=== PATIENT | female | born 1950 | race Caucasian/White ===

== ENCOUNTER → 2020-02-18 08:52 | Outpatient (REF) | payer MEDICARE, BC, SELFPAY ==
--- NOTE | 2020-02-18 08:30 | CA_ITS ---
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 - Trace mitral valve regurgitation present. Findings Left Ventricle Normal left ventricular size, thickness, systolic function, and wall motion. The visually estimated ejection fraction is between 60-65%. Diastolic function is normal for age. Right Ventricle Normal right ventricular cavity size and systolic function. Atria Both atria are normal in size. Aortic Valve There is a normal trileaflet aortic valve. There is mild calcification of the aortic valve. There is no aortic valve stenosis. There is no aortic valve regurgitation. Mitral Valve There is mild anterior mitral leaflet thickening. There is trace mitral valve regurgitation. There is no mitral valve stenosis. Pulmonic Valve Normal pulmonic valve structure and function. There is trace pulmonic valve regurgitation. Tricuspid Valve Normal tricuspid valve structure and function. There is trace tricuspid valve regurgitation. Normal right atrial pressure. There is no evidence of pulmonary hypertension. Great Vessels There is mild dilatation of the ascending aorta. The visualized portions of the pulmonary artery and branches are normal. Venous The inferior vena cava is normal in size and collapses greater than 50% with inspiration. Pericardium/Pleural There is no evidence of pericardial effusion. Prior Study Comparison Changes noted compared to prior study dated: 12/18/2017. Trace MR present (was previously mild to moderate) Measurements 2D Linear Measurements IVSd: 1.15 0.6-0.9/0.6-1.0 cm LVIDd: 4.48 3.9-5.3/4.2-5.9 cm LVIDd Index: 2.29 2.4-3.2/2.2-3.1 cm/m2 LVIDs: 2.54 2.0-3.6 cm LVPWd: 0.87 0.7-1.1 cm LA Diam: 3.40 2.7-3.8/3.0-4.0 cm LAIDs Index: 1.73 1.5-2.3 cm/m2 LV Mass: 191.70 67-162/88-224 g LV Mass Index: 97.81 43-95/49-115 g/m2 LVOT Diam: 1.90 3.0+(-)1.3 cm 2D Systolic Function EF 4C: 81.60 >55% EF 2C: 79.00 >55% EF BiP: 79.70 >55% Mitral Valve MV Pk E: 0.73 MV PK A: 1.04 MV Decel Time: 198.00 E/A: 0.70 E'Lateral: 8.81 E'Medial: 6.74 E/E' Med: 10.80 E/E' Lat: 8.30 PHT: 58.00 MVA PHT: 3.79 Decel Gladwin: 3.67 Aortic Valve AoV Pk Faustino: 1.36 AoV Pk Grad: 7.00 LVOT LVOT Pk Faustino: 1.26 LVOT Mn Faustino: 0.81 LVOT VTI: 0.27 LVOT Pk Grad: 6.00 LVOT Mn Grad: 3.00 LVOT Diam: 1.90 LVOT Area: 2.84 Diastolic Function MV Pk E: 0.73 MV Pk A: 1.04 E/A: 0.70 E'Medial: 6.74 E/E' Med: 10.80 E' Laterial: 8.81 E/E' Lat: 8.30 Tricuspid Valve TR Pk Faustino: 2.20 TR Pk Grad: 19.00 RA Press: 3.00 RVSP: 22.00 Great Vessels Aorta Ao Asc: 3.40 2.1-3.4 cm Ao Arch: 2.60 Updated in Other Vendor System with Status of Final James Mistry MD electronically signed on 02/20/2020 1:22:15 PM with status of Final
== END ==
LOC: HO.CARD 08:52
PROVIDERS: PCP Family Medicine; Visit Provider Family Medicine
DX: I34.0 Nonrheumatic mitral (valve) insufficiency (principal)
CPT/HCPCS: 93306

== ENCOUNTER → 2020-06-28 11:09 | Outpatient (BNVA) | payer MEDICARE, BC, SELFPAY | PROVIDERS: PCP Family Medicine; Visit Provider Surgery | DX: D05.11 Intraductal carcinoma in situ of right breast (principal) | CPT/HCPCS: 99212 ==

== ENCOUNTER 2020-07-10 08:25 | Outpatient (REF) | payer MEDICARE, BC, SELFPAY ==
--- NOTE | ~2020-07-10 | MM_ITS ---
EXAMINATION: MM SCREENING DIGITAL BREAST TOMOSYNTHESIS, LEFT CLINICAL INFORMATION: Right mastectomy 2011. Due for yearly. COMPARISON: Mammography: 07/05/2019, 06/29/2018, 06/26/2017 TECHNIQUE: Digital breast tomosynthesis is performed in both the craniocaudal and mediolateral oblique views along with computer-aided detection (CAD). Synthesized 2D images are generated from the tomosynthesis. Additional left exaggerated CC view is provided. FINDINGS: There are scattered areas of fibroglandular density (ACR BI-RADS breast composition Category b). There are no significant masses, abnormal calcifications, or other abnormalities. The axilla and skin contours are unremarkable. MM/MM tomosynthesis screening LT IMPRESSION: No mammographic evidence of malignancy. ASSESSMENT: BI-RADS 1: Negative RECOMMENDATION: Routine annual mammography screening. This patient's information was entered into a reminder system with a target due date for their next mammogram.
== END 2020-07-10 08:26 | disposition home or self-care (01) ==
LOC: HO.MAMMO 08:25
PROVIDERS: PCP Family Medicine; Visit Provider Family Medicine
DX: Z12.31 Encounter for screening mammogram for malignant neoplasm of breast (principal)
CPT/HCPCS: 77063; 77067

== ENCOUNTER → 2020-08-14 13:40 | Outpatient (BNVA) | payer MEDICARE, BC, SELFPAY | PROVIDERS: PCP Family Medicine; Visit Provider Internal Medicine Gastroenterology | DX: Z13.89 Encounter for screening for other disorder (principal) | CPT/HCPCS: Q3014 ==

== ENCOUNTER 2020-10-10 07:06 | Day surgery (SDC) | payer MEDICARE, BC, SELFPAY ==
[2020-10-05 11:26] VITALS: BMI 31.4
--- NOTE | 2020-10-09 09:43 | HO.ANESPROP2 ---
Documented by User: Roseline Flores 10/09/20 09:44 HPI - Anesthesia Eval Consult details Narrative: 70yo F for Upper Endoscopy and Colonoscopy PMFSH Active Problems Active Problems: All Active Problems (Updated 08/14/20 @ 14:28 by iTana Guadalupe MD) Dysphagia (Acute) Family hx of colon cancer requiring screening colonoscopy (Acute) Ductal carcinoma in situ (DCIS) of right breast (Acute) Past Medical History Medical History Ductal carcinoma in situ (DCIS) of right breast Dysphagia Family hx of colon cancer requiring screening colonoscopy Hiatal hernia Hypercholesterolemia Hypertension Family History Family History Mother History of breast cancer, Onset Age: 60 Father Old age Brother Colon cancer Surgical History Surgical History History of breast reconstruction (07/27/12) History of colonoscopy History of dilation and curettage History of esophagogastroduodenoscopy (EGD) (06/24/13) History of left knee replacement (08/04/17) History of right mastectomy (10/24/11) History of total right knee replacement (03/11/17) Social History Social History Household Members: Spouse Are you a primary care director to a significant other at home: No Do you presently have visiting nurse or other home services: No Alcohol intake: current Alcohol intake frequency: does not drink Patient Tobacco Use Status: Never used Tobacco Use of substances other than those prescribed or required for medical reasons: No Have you been hit, kicked, punched, or otherwise hurt by someone within the past year? If so, by whom?: No Are you DNR?: No Advance Directives: Yes (states HCP is ) Advance Directives Information Provided: No Advance Directives on File: No Advance Directives Date on File: 10/10/20 Recently lost weight without trying: No Eating poorly because of decreased appetite: No Nutrition Risks: No Nutritional Risk Poor oral hygiene: No Meds Allergies Allergy/AdvReac Type Severity Reaction Status Date / Time No Known Allergies Allergy Verified 08/14/20 13:41 Home Medications Medication Instructions Recorded Confirmed Last Taken Type lisinopril 10 mg tablet 10 mg PO DAILY 06/28/20 10/05/20 Unknown History simvastatin 40 mg tablet 40 mg PO BEDTIME 06/28/20 10/05/20 Unknown History Exam Exam Date and Time: October 09, [id number] Height,Weight and Vital Signs: Height 5 ft 6 in Weight 88.451 kg Assessment and Plan Assessment Anesthesia Assessment: Chart Reviewed Documented by User: Tammie Farr 10/10/20 08:23 [facility] Past Medical History Medical History Ductal carcinoma in situ (DCIS) of right breast Dysphagia Family hx of colon cancer requiring screening colonoscopy Hiatal hernia Hypercholesterolemia Hypertension Family History Family History Mother History of breast cancer, Onset Age: 60 Father Old age Brother Colon cancer Family history of problems with anesthesia: No Surgical History Surgical History History of breast reconstruction (07/27/12) History of colonoscopy History of dilation and curettage History of esophagogastroduodenoscopy (EGD) (06/24/13) History of left knee replacement (08/04/17) History of right mastectomy (10/24/11) History of total right knee replacement (03/11/17) History of Problems with Anesthesia: No Social History Social History Household Members: Spouse Are you a primary care director to a significant other at home: No Do you presently have visiting nurse or other home services: No Alcohol intake: current Alcohol intake frequency: does not drink Patient Tobacco Use Status: Never used Tobacco Use of substances other than those prescribed or required for medical reasons: No Have you been hit, kicked, punched, or otherwise hurt by someone within the past year? If so, by whom?: No Are you DNR?: No Advance Directives: Yes (states HCP is ) Advance Directives Information Provided: No Advance Directives on File: No Advance Directives Date on File: 10/10/20 Recently lost weight without trying: No Eating poorly because of decreased appetite: No Nutrition Risks: No Nutritional Risk Poor oral hygiene: No Meds Allergies Allergy/AdvReac Type Severity Reaction Status Date / Time No Known Allergies Allergy Verified 08/14/20 13:41 Home Medications Medication Instructions Recorded Confirmed Last Taken Type lisinopril 10 mg tablet 10 mg PO DAILY 06/28/20 10/05/20 Unknown History simvastatin 40 mg tablet 40 mg PO BEDTIME 06/28/20 10/05/20 Unknown History Exam Height,Weight and Vital Signs: Vital Signs Temp Pulse Resp BP Pulse Ox 10/10/20 07:30 98.1 F 87 16 139/76 97 Airway Mallampati Class: II TM Dist: >3cm Neck ROM: Full Heart: RRR Lungs: CTAB Assessment and Plan Assessment Anesthesia Assessment: Anesthesia Plan Discussed and Chart Reviewed Final Anesthetic Review NPO: Yes ASA Class: II Final Preanesthetic Review: No Changes in Pt Med Stat, Meds/Allgs Chart Reviewed, Consent Obtained/Reviewed and Anes Risks/Benef Reviewed Patient Risk: Low Procedure Risk: Low Assessment/Block/Sedation in SS: Assess/Block/Sedation-SS Anesthetic Plan Anesthetic Plan: MAC: Disposition: Standard PACU
[2020-10-10 07:30] VITALS: BP 139/76; PULSE 87; RESP 16; TEMP 36.7; O2SAT 97
--- NOTE | 2020-10-10 07:39 | PM.OP ---
Brief Operative Note Date of Service: 10/10/20 Pre-op diagnosis: Colon cancer screening, hx of colon polyps, FH of colon cancer, dysphagia Post-op diagnosis: other (Hiatal hernia, Schatzki's ring, gastric polyps, diverticulosis) Procedure: FLEXIBLE TRANSORAL UPPER GASTROINTESTINAL ENDOSCOPY WITH BIOPSIES AND ESOPHAGEAL BALLOON DILATION AND COLONOSCOPY TILL CECUM UPPER ENDOSCOPY Consent: Indications for the procedure and potential complications of bleeding, perforation, reaction to medications and missed diagnosis were discussed with the patient and informed consent was obtained. Instrument: Olympus GIF H 190 mid size upper endoscope Monitoring: Vital signs and clinical assessment, continuous EKG monitoring, Pulse oximetry, Carbon Dioxide monitoring and blood pressure monitoring were done throughout the procedure. Procedure: The patient was placed in the left lateral decubitis position and pre-procedure medications were administered and a bite block was placed. The endoscope was inserted into the mouth and advanced under direct vision to the third part of duodenum. A careful inspection was made as the upper endoscope was withdrawn including a retroflexed examination of the proximal stomach; Findings and interventions are described below. Findings: Larynx: Normal Esophagus: Grade 1-2 esophageal varices from 30 to 35 cms. GE junction at 36 cms, hiatal hernia 36 to 40 cms. A partially obstructing Schatzki's ring/focal stricture at GEJ. Biopsies were obtained from the stricture. Esophageal balloon dilation was performed with a 20 mm CRE balloon x 60 seconds x 1. No esophagitis or Sumner's. Stomach: Multiple 5 mm to 1.5 cms benign appearing gastric polyps. Biopsies were obtained. Grade 4 flap valve on retroflexed examination of the cardia. Duodenum: Normal bulb and descending duodenum Intervention: Biopsies as noted above COLONOSCOPY PROCEDURE NOTE Consent: Indications for the procedure and potential complications of bleeding, perforation, reaction to medications and missed diagnosis were discussed with the patient and informed consent was obtained. Instrument: Olympus PCF H 190 L variable stiffness pediatric colonoscope Monitoring: Vital signs and clinical assessment, intermittent blood pressure monitoring, continuous EKG monitoring, Pulse oximetry and Carbon Dioxide monitoring were done throughout the procedure. Colon withdrawl time was 25 minutes. Procedure: The patient was placed in the left lateral decubitis position and pre-procedure medications were administered. After a digital rectal examination of the ano-rectum, the video colonoscope was inserted into the rectum and advanced through the colon to the cecum. The colonoscope was slowly withdrawn in a retrograde panoramic fashion and the colon mucosa was carefully examined including a retroflexed view of the rectum. Findings and interventions are described below. Procedure Difficulty: Colon was long and tortuous some loop formation. No maneuvers were required. Findings: Terminal Ileum: Not evaluated Cecum: Normal Ascending Colon: Normal Transverse Colon: Normal Descending Colon: Moderate diverticulosis Sigmoid Colon: Severe diverticulosis with luminal narrowing Rectum: Normal Ano-rectum: Normal Colon preparation: Good after copious irrigation Impression and Post Procedure Diagnosis: Endoscopy Findings: ESOPHAGUS: Grade 1-2 esophageal varices from 30 to 35 cms. GE junction at 36 cms, hiatal hernia 36 to 40 cms. A partially obstructing Schatzki's ring/focal stricture at GEJ. No esophagitis or Sumner's. Biopsies were obtained from the stricture. Esophageal balloon dilation was performed with a 20 mm CRE balloon x 60 seconds x 1. STOMACH: Multiple gastric polyps Colonoscopy Findings: No polyps were detected Moderate to severe diverticulosis seen in the left colon Plan: Await pathology results Patient has an appointment on 11/09/20 in the GI Clinic with Cristopher Grimm M.D.. Repeat Colonoscopy in 5 years due to a hx of adenomatous colon polyps. Above findings were reviewed with the patient and Gastric polyps and diverticulosis handouts were given in the discharge area Surgeon: Cristopher Grimm MD Anesthesia: MAC (Michelle Vergara CRNA & Dr Farr) Was an Quality Control Lead used for this Procedure?: Yes Quality Control Lead: Isai Parrish Estimated blood loss (mL): 0 Pathology: other (A: GASTRIC POLYP BX B: ESOPHAGEAL STRICTURE BX) Condition: stable Disposition: PACU
--- NOTE | 2020-10-10 07:39 | MHC.SHP ---
Pre-Procedural Eval Section A The patient is an INPATIENT: No The History & Physical has been completed within 30 days and I have reviewed it.: No Section B Chief Complaint: Family Hx of Colon Cancer, Dysphagia Details of Present Illness: Colon cancer screening, family history of colon cancer (brother of advanced colon cancer at age 57), dysphagia Relevant Family History (Specify if Yes): Yes Relevant Social History: None Present Medications: see Short Stay Collaborative assessment Medical History: Significant History (Ductal carcinoma in situ (DCIS) of right breast Dysphagia Family hx of colon cancer requiring screening colonoscopy Hiatal hernia Hypercholesterolemia Hypertension) History of Previous Operations: Relevant previous surgery/procedure and date(s) (History of breast reconstruction (07/27/12) History of colonoscopy History of dilation and curettage History of esophagogastroduodenoscopy (EGD) (06/24/13) History of left knee replacement (08/04/17) History of right mastectomy (10/24/11) History of total right knee replacement (03/11/17)) Allergies: Allergies Allergy/AdvReac Type Severity Reaction Status Date / Time No Known Allergies Allergy Verified 08/14/20 13:41 Review of Systems Sugical H&P ROS: Negative: Constitution, Cardiovascular and Respiratory and Yes, Specify: Gastrointestinal (dysphagia) Exam Surgical H&P Exam: Normal: Heart, Normal: Lungs, Normal: Extremities and Normal: Abdomen Plan Diagnosis/Plan: Unchanged I have reviewed the history and physical and performed a pertinent physical examination on my patient. No changes have occurred unless specified.
[2020-10-10] MEDS: Lactated Ringers 1,000 ML 100 ML IVCONT (07:43)
[2020-10-10] MEDS: Sodium Phosphate,Mono-Dibasic 133 ML ENEMA PR (07:44)
--- NOTE | 2020-10-10 07:55 | PC.NURSE ---
FLEET ENEMA PERFORMED LAYING ON LEFT SIDE LOLLY WELL. OUTPUT CLEAR WITH SLIGHT YELLOW.
--- NOTE | 2020-10-10 08:27 | P.OP_ITS ---
Operative Note Operative Note Date of Service: 10/10/20 Narrative: Pre-op diagnosis: Colon cancer screening, hx of colon polyps, FH of colon cancer, dysphagia Post-op diagnosis: other (Hiatal hernia, Schatzki's ring, gastric polyps, diverticulosis) Procedure: FLEXIBLE TRANSORAL UPPER GASTROINTESTINAL ENDOSCOPY WITH BIOPSIES AND ESOPHAGEAL BALLOON DILATION AND COLONOSCOPY TILL CECUM UPPER ENDOSCOPY Consent: Indications for the procedure and potential complications of bleeding, perforation, reaction to medications and missed diagnosis were discussed with the patient and informed consent was obtained. Instrument: Olympus GIF H 190 mid size upper endoscope Monitoring: Vital signs and clinical assessment, continuous EKG monitoring, Pulse oximetry, Carbon Dioxide monitoring and blood pressure monitoring were done throughout the procedure. Procedure: The patient was placed in the left lateral decubitis position and pre-procedure medications were administered and a bite block was placed. The endoscope was inserted into the mouth and advanced under direct vision to the third part of duodenum. A careful inspection was made as the upper endoscope was withdrawn including a retroflexed examination of the proximal stomach; Findings and interventions are described below. Findings: Larynx: Normal Esophagus: Grade 1-2 esophageal varices from 30 to 35 cms. GE junction at 36 cms, hiatal hernia 36 to 40 cms. A partially obstructing Schatzki's ring/focal stricture at GEJ. Biopsies were obtained from the stricture. Esophageal balloon dilation was performed with a 20 mm CRE balloon x 60 seconds x 1. No esophagitis or Sumner's. Stomach: Multiple 5 mm to 1.5 cms benign appearing gastric polyps. Biopsies were obtained. Grade 4 flap valve on retroflexed examination of the cardia. Duodenum: Normal bulb and descending duodenum Intervention: Biopsies as noted above COLONOSCOPY PROCEDURE NOTE Consent: Indications for the procedure and potential complications of bleeding, perforation, reaction to medications and missed diagnosis were discussed with the patient and informed consent was obtained. Instrument: Olympus PCF H 190 L variable stiffness pediatric colonoscope Monitoring: Vital signs and clinical assessment, intermittent blood pressure monitoring, continuous EKG monitoring, Pulse oximetry and Carbon Dioxide monitoring were done throughout the procedure. Colon withdrawl time was 25 minutes. Procedure: The patient was placed in the left lateral decubitis position and pre-procedure medications were administered. After a digital rectal examination of the ano-rectum, the video colonoscope was inserted into the rectum and advanced through the colon to the cecum. The colonoscope was slowly withdrawn in a retrograde panoramic fashion and the colon mucosa was carefully examined including a retroflexed view of the rectum. Findings and interventions are described below. Procedure Difficulty: Colon was long and tortuous some loop formation. No maneuvers were required. Findings: Terminal Ileum: Not evaluated Cecum: Normal Ascending Colon: Normal Transverse Colon: Normal Descending Colon: Moderate diverticulosis Sigmoid Colon: Severe diverticulosis with luminal narrowing Rectum: Normal Ano-rectum: Normal Colon preparation: Good after copious irrigation Impression and Post Procedure Diagnosis: Endoscopy Findings: ESOPHAGUS: Grade 1-2 esophageal varices from 30 to 35 cms. GE junction at 36 cms, hiatal hernia 36 to 40 cms. A partially obstructing Schatzki's ring/focal stricture at GEJ. No esophagitis or Sumner's. Biopsies were obtained from the stricture. Esophageal balloon dilation was performed with a 20 mm CRE balloon x 60 seconds x 1. STOMACH: Multiple gastric polyps Colonoscopy Findings: No polyps were detected Moderate to severe diverticulosis seen in the left colon Plan: Await pathology results Patient has an appointment on 11/09/20 in the GI Clinic with Cristopher Grimm M.D. Patient will be scheduled for an abdominal US and have labs checked for presence of liver disease. Repeat Colonoscopy in 5 years due to a hx of adenomatous colon polyps. Above findings were reviewed with the patient and Gastric polyps and diverticulosis handouts were given in the discharge area Surgeon: Cristopher Grimm MD Anesthesia: MAC (Michelle Vergara CRNA & Dr Farr) Was an Retail Field Representative used for this Procedure?: Yes Retail Field Representative: Isai Parrish Estimated blood loss (mL): 0 Pathology: other (A: GASTRIC POLYP BX B: ESOPHAGEAL STRICTURE BX) Condition: stable Disposition: PACU
[2020-10-10 09:36] VITALS: BP 111/54; PULSE 79; RESP 16; TEMP 36.2; O2SAT 98
[2020-10-10 09:51] VITALS: BP 130/61; PULSE 68; RESP 18; O2SAT 98
== END 2020-10-10 10:38 | disposition home or self-care (01) ==
PROVIDERS: PCP Family Medicine; Visit Provider Internal Medicine Gastroenterology
PROC: (CPT 43249; principal; 2020-10-10 08:20)
DX: Z12.11 Encounter for screening for malignant neoplasm of colon (principal); Z86.010 Personal history of colon polyps; Z80.0 Family history of malignant neoplasm of digestive organs; K57.30 Diverticulosis of large intestine without perforation or abscess without bleeding; K22.2 Esophageal obstruction; I85.00 Esophageal varices without bleeding; K31.7 Polyp of stomach and duodenum; K44.9 Diaphragmatic hernia without obstruction or gangrene; I10 Essential (primary) hypertension; Z85.3 Personal history of malignant neoplasm of breast; Z79.899 Other long term (current) drug therapy
CPT/HCPCS: 43249; 43239; G0105; 88305; 88342; C1726

== ENCOUNTER 2020-11-01 08:59 | Outpatient (REF) | payer MEDICARE, BC, SELFPAY ==
--- NOTE | ~2020-11-01 | US_ITS ---
EXAMINATION: US ABDOMEN LIMITED WITH LIVER ELASTOGRAPHY CLINICAL INFORMATION: Esophageal varices. Rule out cirrhosis. COMPARISON: None. TECHNIQUE: Real-time imaging of the abdominal viscera. Noninvasive ultrasound liver fibrosis assessment is performed using Oksana ElastPQ point quantification shear wave elastography (pSWE) with a C5-2 MHz transducer. Multiple elastography samples are obtained. FINDINGS: PANCREAS: Normal. LIVER: Normal. The liver demonstrates normal size, contour and echogenicity. No focal lesion or intrahepatic biliary duct dilatation. The right lobe measures 13 cm in length. The left lobe measures 8 cm in length. Portal flow is normal/hepatopedal Shear wave liver elastography median stiffness is 1.3 m/s (reference: normal median stiffness is 1.3 m/s or less). IQR/median stiffness to assess sampling precision is 0.1 (reference: good quality data set is IQR/median stiffness of 0.15 or less). GALLBLADDER: Normal. The gallbladder is physiologically distended without evidence of stones, sludge, polyps, wall thickening or pericholecystic fluid. COMMON BILE DUCT: Normal in caliber measuring 0.4 cm in diameter. RIGHT KIDNEY: Normal. No hydronephrosis. No renal calculi or focal parenchymal lesions. The kidney measures 10.6 cm in maximum dimension. FREE FLUID: None. US/US abdomen fall w elastography IMPRESSION: 1. Impression: Unremarkable exam 2. Liver elastography: Adequate sampling. Normal liver stiffness. REFERENCE: Society of Radiologists in Ultrasound Liver Stiffness Thresholds (2020): LIVER STIFFNESS THRESHOLDS: *Liver Stiffness equal or less than 1.3 m/s: High probability of being normal. *Liver Stiffness less than 1.7 m/s: In the absence of other known clinical signs, rules out compensated advanced chronic liver disease. *Liver Stiffness 1.7-2.1 m/s: Suggestive of compensated advanced chronic liver disease but need further test for confirmation. *Liver Stiffness over 2.1 m/s: Rules in compensated advanced chronic liver disease. *Liver Stiffness over 2.4 m/s: Suggestive of clinically significant portal hypertension. QUALITY OF DATA SET: *IQR/Median value equal or less than 0.15 implies a quality data set. *IQR/Median value over 0.15 implies a poor quality data set. SIGNIFICANT CHANGE FROM PRIOR EXAM: Significant change if liver stiffness measurement is 10% or greater from prior exam. OTHER CONSIDERATIONS: The stage of liver fibrosis may be overestimated in the setting of acute hepatitis, liver inflammation, elevated liver function tests, hepatic vascular congestion, obstructive cholestasis, non-fasting state, and infiltrative diseases such as amyloidosis and lymphoma. In some patients with NAFLD, the liver stiffness thresholds for compensated advanced chronic liver disease may be lower. In causes other than viral hepatitis and NAFLD, liver stiffness thresholds are not well established.
== END 2020-11-01 09:00 | disposition home or self-care (01) ==
LOC: HO.US 08:59
PROVIDERS: Visit Provider Internal Medicine Gastroenterology
DX: I85.00 Esophageal varices without bleeding (principal)
CPT/HCPCS: 76705; 76981

== ENCOUNTER → 2020-11-09 10:45 | Outpatient (BNVA) | payer MEDICARE, BC, SELFPAY | PROVIDERS: PCP Family Medicine; Referring Provider Family Medicine; Visit Provider Internal Medicine Gastroenterology | DX: R13.10 Dysphagia, unspecified (principal); Z80.0 Family history of malignant neoplasm of digestive organs | CPT/HCPCS: 99212 ==

== ENCOUNTER 2020-12-28 07:13 | Outpatient (REF) | payer MEDICARE, BC, SELFPAY ==
[2020-12-28 09:02] LABS: MANUAL DIFF FLAG NO
[2020-12-28 09:07] LABS: Basophils Percent Auto 0.7 % (0-2); Eosinophils Absolute Auto 0.1 X10*3/uL (0.0-0.4); Eosinophils Percent Auto 2.2 % (0-4); Hematocrit 46.3 % (37-47); Hemoglobin 14.8 g/dl (12.0-16.0); Imm Gran Abs Auto 0.01 X10*3/uL (0.00-0.03); Imm Gran Pct Auto 0.2 % (0.0-0.4); Lymphocytes Absolute Auto 1.5 X10*3/uL (1.2-4.9); Mean Corpuscular Hemoglobin 30.2 pg (27.0-33.0); Mean Corpuscular Volume 94.5 fL (80-98); Mean Platelet Volume 11.2 fL (9.4-12.3); Monocytes Absolute Auto 0.4 X10*3/uL (0.1-1.2); Monocytes Percent Auto 8.9 % (2-11); Neutrophils Absolute Auto 2.2 X10*3/uL (2.0-8.3); Platelet Count 314 X10*3/uL (160-400); Red Cell Distribution Width 13.1 % (11.0-16.0); White Blood Count 4.2 X10*3/uL (4.8-10.8)
[2020-12-28 09:25] LABS: Alanine Aminotransferase 18 U/L (0-31); Anion Gap 11 (12-20); Blood Urea Nitrogen 12 mg/dL (9-16); Carbon Dioxide 30 mmol/L (22-29); Chloride 105 mmol/L (96-108); Estimated Glomerular Filt Rate > 60; Potassium 4.9 mmol/L (3.3-5.1); Sodium 141 mmol/L (135-145)
[2020-12-28 09:27] LABS: Alanine Aminotransferase 19 U/L (0-31); Albumin Level 4.1 g/dL (3.5-5.0); Alkaline Phosphatase 79 U/L (39-117); Aspartate Amino Transferase 20 U/L (5-31); Bilirubin Direct 0.3 mg/dL (0.0-0.5); Bilirubin Total 0.7 mg/dL (0.0-1.0); Estimated Glomerular Filt Rate > 60; Total Protein 6.6 g/dL (6.5-8.0)
== END 2020-12-28 07:14 | disposition home or self-care (01) ==
LOC: HO.LAB 07:13
PROVIDERS: Absent Provider Family Medicine; PCP Family Medicine; Visit Provider Internal Medicine Gastroenterology
DX: I10 Essential (primary) hypertension (principal); E78.00 Pure hypercholesterolemia, unspecified; R13.10 Dysphagia, unspecified; D72.819 Decreased white blood cell count, unspecified; Z79.899 Other long term (current) drug therapy
CPT/HCPCS: 36415; 80051; 80076; 82550; 82565; 84460; 84520; 85025; 85610

== ENCOUNTER → 2021-05-14 07:56 | Outpatient (BNVA) | payer MEDICARE, BC, SELFPAY | PROVIDERS: PCP Family Medicine; Visit Provider Internal Medicine Gastroenterology | DX: R13.10 Dysphagia, unspecified (principal); I85.00 Esophageal varices without bleeding; K44.9 Diaphragmatic hernia without obstruction or gangrene; K22.2 Esophageal obstruction; Z80.0 Family history of malignant neoplasm of digestive organs | CPT/HCPCS: 99212 ==

== ENCOUNTER 2021-07-03 08:22 | Outpatient (REF) | payer MEDICARE, BC, SELFPAY ==
--- NOTE | ~2021-07-03 | FL_ITS ---
EXAMINATION: FL BARIUM SWALLOW CLINICAL INFORMATION: Dysphagia. COMPARISON: None TECHNIQUE: Barium swallow examination is performed using fluoroscopic evaluation in addition to multiple fluoroscopic spot views. The patient is imaged both upright and prone and using both thick and thin sulfate along with effervescent granules. Fluoroscopy time: 2.3 minutes DAP: 8.106 Gycm2 Images: 55 FINDINGS: Following oral administration of thick barium and effervescent granules, there is normal propagation of bolus from the oral cavity through the pharynx into esophagus without any evidence of obstruction, narrowing or stricture. Minimal retention of barium was seen in the left pyriform sinus on delayed images. No laryngeal penetration or aspiration. On placing patient prone lying and oral administration of thin barium, there is good distention of the esophagus without any intraluminal filling defect or extrinsic compression. There is a nonreducible hiatal hernia with mild gastroesophageal reflux. FL/FL barium swallow IMPRESSION: Nonreducible small hiatal hernia. There is no esophageal narrowing, obstruction or extrinsic compression. Trace residual barium in the left pyriform sinus.
== END 2021-07-03 08:23 | disposition home or self-care (01) ==
LOC: HO.XRAY 08:22
PROVIDERS: PCP Family Medicine; Visit Provider Internal Medicine Gastroenterology
DX: R13.10 Dysphagia, unspecified (principal)
CPT/HCPCS: 74220

== ENCOUNTER → 2021-07-06 10:19 | Outpatient (BNVA) | payer MEDICARE, BC, SELFPAY | PROVIDERS: PCP Family Medicine; Visit Provider Surgery | DX: Z85.3 Personal history of malignant neoplasm of breast (principal); Z98.890 Other specified postprocedural states | CPT/HCPCS: 99212 ==

== ENCOUNTER 2021-07-12 07:24 | Outpatient (REF) | payer MEDICARE, BC, SELFPAY ==
--- NOTE | ~2021-07-12 | MM_ITS ---
EXAMINATION: MM SCREENING DIGITAL BREAST TOMOSYNTHESIS, LEFT CLINICAL INFORMATION: Screening. Asymptomatic. Right mastectomy, 2011. COMPARISON: Mammography: 07/10/2020, 07/23/2019, 06/29/2018 TECHNIQUE: Digital breast tomosynthesis is performed in both the craniocaudal and mediolateral oblique views along with computer-aided detection (CAD). Synthesized 2D images are generated from the tomosynthesis. FINDINGS: There are scattered areas of fibroglandular density (ACR BI-RADS breast composition Category b). There are no significant masses, abnormal calcifications, or other abnormalities. Parenchymal pattern is similar to prior studies. The left axilla and skin contours are unremarkable. There are no significant changes. MM/MM tomosynthesis screening LT IMPRESSION: No mammographic evidence of malignancy. ASSESSMENT: BI-RADS 1: Negative RECOMMENDATION: Routine annual mammography screening. This patient's information was entered into a reminder system with a target due date for their next mammogram.
== END 2021-07-12 07:25 | disposition home or self-care (01) ==
LOC: HO.MAMMO 07:24
PROVIDERS: PCP Family Medicine; Visit Provider Family Medicine
DX: Z12.31 Encounter for screening mammogram for malignant neoplasm of breast (principal)
CPT/HCPCS: 77063; 77067

== ENCOUNTER → 2021-08-16 07:57 | Outpatient (BNVA) | payer MEDICARE, BC, SELFPAY | PROVIDERS: PCP Family Medicine; Visit Provider Internal Medicine Gastroenterology | DX: R13.10 Dysphagia, unspecified (principal); Z80.0 Family history of malignant neoplasm of digestive organs | CPT/HCPCS: 99212 ==

== ENCOUNTER 2022-07-25 07:25 | Outpatient (REF) | payer MEDICARE, BC, SELFPAY ==
--- NOTE | ~2022-07-25 | MM_ITS ---
EXAMINATION: MM SCREENING DIGITAL BREAST TOMOSYNTHESIS, LEFT CLINICAL INFORMATION: Screening. Asymptomatic. Status post right mastectomy. COMPARISON: Mammography: September 11, 2021 and studies dating back to June 26, 2017 TECHNIQUE: Digital breast tomosynthesis is performed in both the craniocaudal and mediolateral oblique views along with computer-aided detection (CAD). Synthesized 2D images are generated from the tomosynthesis. FINDINGS: There are scattered areas of fibroglandular density (ACR BI-RADS breast composition Category b). There are no significant masses, abnormal calcifications, or other abnormalities. MM/MM tomosynthesis screening LT IMPRESSION: No significant changes from prior exam. ASSESSMENT: BI-RADS 1: Negative RECOMMENDATION: Routine annual mammography screening. This patient's information was entered into a reminder system with a target due date for their next mammogram.
== END 2022-07-25 07:26 | disposition home or self-care (01) ==
LOC: HO.MAMMO 07:25
PROVIDERS: Visit Provider Family Medicine
DX: Z12.31 Encounter for screening mammogram for malignant neoplasm of breast (principal)
CPT/HCPCS: 77063; 77067

== ENCOUNTER → 2022-08-15 07:56 | Outpatient (BNVA) | payer MEDICARE, BC, SELFPAY | PROVIDERS: PCP Family Medicine; Referring Provider Family Medicine; Visit Provider Internal Medicine Gastroenterology | DX: K21.9 Gastro-esophageal reflux disease without esophagitis (principal); K22.2 Esophageal obstruction; R13.10 Dysphagia, unspecified; Z80.0 Family history of malignant neoplasm of digestive organs | CPT/HCPCS: 99212 ==

== ENCOUNTER 2023-02-13 07:51 | Outpatient (AMB) | payer MEDICARE, BC, SELFPAY ==
[2023-02-13 07:59] VITALS: BP 116/62; PULSE 69; BMI 31.5
--- NOTE | 2023-02-13 07:59 | A.OFFVIS_ITS ---
Intake Vital Signs 02/13/23 07:59 Height 5 ft 6 in Weight 195 lb BMI 31.5 BP 116/62 Blood Pressure Location Lt brachial Position Sitting Pulse 69 Intake Visit Reasons: 6 month fu Intake Note: Patient follow up for dysphagia Patient cc: some swallowing problems on and off. Showroom Consultant Required: No Accompanied by: Self / Same As Patient Allergies No Known Allergies Allergy (Verified 02/13/23 07:58) Medication List - Last Reconciled 02/13/23 by Cristopher Grimm MD ascorbic acid (vitamin C) 2 grams PO Q8H cholecalciferol (vitamin D3) 25 mcg PO DAILY famotidine 20 mg PO DAILY flaxseed oil 1,000 mg PO DAILY lisinopril 10 mg PO DAILY simvastatin 40 mg PO BEDTIME sulfamethoxazole-trimethoprim 800-160 mg 1 tab PO BID triamcinolone acetonide 0.1% appl topical HPI 6 month fu HPI Details GI clinic visit for this 72-year-old female for follow-up of dysphagia. IMAGING STUDIES:? 07/03/21 BARIUM SWALLOW SHOWED: Following oral administration of thick barium and effervescent granules, there is normal propagation of bolus from the oral cavity through the pharynx into esophagus without any evidence of obstruction, narrowing or stricture. Minimal retention of barium was seen in the left pyriform sinus on delayed images. No laryngeal penetration or aspiration. On placing patient prone lying and oral administration of thin barium, there is good distention of the esophagus without any intraluminal filling defect or extrinsic compression. There is a nonreducible hiatal hernia with mild gastroesophageal reflux. 11/01/30 US WITH ELASTOGRAPHY SHOWED: MPRESSION: 1. Impression: Unremarkable exam 2. Liver elastography:? Adequate samplin g. Normal liver stiffness. ENDOSCOPIC STUDIES: 10/10/20? EGD AND COLONOSCOPY SHOWED:? Endoscopy Findings: ESOPHAGUS: Grade 1-2 esophageal varices from 30 to 35 cms.? GE junction at 36 cms, hiatal hernia 36 to 40 cms.? A partially obstructing Schatzki's ring/focal stricture at GEJ.? No esophagitis or Sumner's.? Biopsies were obtained from the stricture. Esophageal balloon dilation was performed with a 20 mm CRE balloon x 60 seconds x 1. STOMACH: Multiple gastric polyps Colonoscopy Findings:? No polyps were detected Moderate to severe diverticulosis seen in the left colon Plan:? Patient has an appointment on 11/09/20 in the GI Clinic with Cristopher Grimm M.D.. Repeat Colonoscopy in 5 years due to a hx of adenomatous colon polyps. Above findings were reviewed with the patient and Gastric polyps and diverticulosis handouts were given in the discharge area BIOPSIES SHOWED: A.? Stomach, polyp, biopsy:? Fundic gland polyp with background mild chronic inactive inflammation; no Helicobacter organisms seen. B.? Esophagus, stricture, biopsy: - Cardiac-type mucosa with moderate director surgical renetta inactive inflammation; no intestinal metaplasia seen. - Chronic esophagitis. TODAY'S VISIT: Occasional dysphagia 1-3 times a month - usually with dry foods - tries to be very careful Every once in a while the food sticks and feels like a bubble Food ultimately goes down - has learned a few tricks. Makes sure food is moist. PAST VISIT Food can get stuck once a month - is able to walk around and dysphagia is relieved. Occasionally has to regurgitate Barium swallow results reviewed with the patient. Being careful with what she eats and taking time to chew her food Denies heartburn. Takes Famotidine daily. Had a few episodes of food getting stuck - a piece of salmon with sauce got stuck for 1/2 an hour. Minor episodes every 1-2 weeks. Noted improvement in dysphagia after EGD. Seems to be coming back slowly. Notes coughing if throat is dry despite drinking water. Patient denies symptoms of heartburn, dysphagia, nausea, vomiting, change in appetite or weight.? Denies recent change in bowel habits, constipation, diarrhea, black stools or rectal bleeding. Patient denies major cardiac or pulmonary problems, loud snoring or sleep apnea Denies problems with anesthesia in the past. Denies being on chronic anticoagulation. Positive family history of colon cancer (brother at age 57 yrs and a month?after) [facility] Medical History (Updated 08/15/22 @ 08:33 by Cristopher Grimm MD) Invasive ductal carcinoma of right breast Dysphagia Family hx of colon cancer requiring screening colonoscopy Hiatal hernia Hypercholesterolemia Hypertension Ductal carcinoma in situ (DCIS) of right breast Surgical History Hx of endoscopy History of left knee replacement (08/04/17) History of total right knee replacement (03/11/17) History of breast reconstruction (07/27/12) History of esophagogastroduodenoscopy (EGD) (06/24/13) History of right mastectomy (10/24/11) History of colonoscopy History of dilation and curettage Family History Mother History of breast cancer, Onset Age: 60 Father Old age Brother Colon cancer Social History Household Members: Spouse Are you a primary intensive care anaesthetist to a significant other at home: No Do you presently have visiting nurse or other home services: No Alcohol intake: current Alcohol intake frequency: does not drink Patient Tobacco Use Status: Never used Tobacco Advance Directives Date on File: 10/10/20 Review of Systems Const All systems reviewed & are unremarkable except as noted in HPI and below Physical Exam Vital Signs: Last Vital Signs Pulse 69 02/13/23 07:59 BP 116/62 02/13/23 07:59 BMI result Body Mass Index 31.5 Const General: healthy appearing and no acute distress Nutritional Appearance: average body habitus Orientation/consciousness: patient oriented x3 Limitations: no limitations HEENT Head: Yes normal to inspection Ears: hearing grossly normal bilaterally Mouth: Normal oral and palatal mucosa present Eyes Sclerae: sclerae normal Pupils: Equal, round and reactive pupils present Neck Neck: Yes normal visual inspection Chest Chest palpation & inspection: normal inspection of the chest Resp Effort & Inspection: normal respiratory effort Auscultation: clear to auscultation bilaterally Cardio Palpation: normal PMI Rate: regular rate Rhythm: regular rhythm Heart sounds: S1 normal heart sound present, S2 normal heart sound present and no murmurs GI Palpation (GI): Soft to palpation, nontender and No hepatosplenomegaly present Auscultation: normal bowel sounds Rectal Exam - Female: deferred Skin General skin exam: no rashes or lesions noted Neuro General: patient oriented x3, gait normal and moves all extremities Cranial nerves: Yes Equal, round and reactive pupils present Psych Appearance: grossly normal Mental Status: mental status grossly normal Assessment & Plan Assessment & Plan (1) Schatzki's ring: Code(s): K22.2 - Esophageal obstruction (2) GERD (gastroesophageal reflux disease): Code(s): K21.9 - Gastro-esophageal reflux disease without esophagitis (3) Dysphagia: Comment: 07/2021 Barium swallow showed: No intraluminal filling defect or extrinsic compression. There is a nonreducible hiatal hernia with mild gastroesophageal reflux. Code(s): R13.10 - Dysphagia, unspecified (4) Family hx of colon cancer requiring screening colonoscopy: Comment: 10/10/20 Colonoscopy Findings: No polyps were detected Moderate to severe diverticulosis seen in the left colon Plan: Repeat Colonoscopy in 5 years due to a hx of adenomatous colon polyps. Code(s): Z80.0 - Family history of malignant neoplasm of digestive organs Plan 72 YF with Hypertension, hypercholesterolemia and DCIS of right breast followed in GI for dysphagia? due to Schatzki's ring and family history of colon cancer EGD AND COLONOSCOPY SHOWED: Endoscopy Findings:? ESOPHAGUS: Grade 1-2 esophageal varices from 30 to 35 cms.? GE junction at 36 cms, hiatal hernia 36 to 40 cms.? A partially obstructing Schatzki's ring/focal stricture at GEJ.? No esophagitis or Sumner's.? Biopsies were obtained from the stricture. Esophageal balloon dilation was performed with a 20 mm CRE balloon x 60 seconds x 1. STOMACH: Multiple gastric polyps 07/2021 barium swallow was performed and findings as noted above Pt was advised to schedule repeat EGD since episodes of dysphagia appear to be more frequent - ready to schedule in 3-4 months. She was advised to call the GI clinic if she experienced worsening dysphagia to schedule an earlier appt for EGD with dilation Follow-up appointment in 6 months. Coding Level of Care Code Est Pt Level 3 (82210) Diagnoses Schatzki's ring K22.2 GERD (gastroesophageal reflux disease) K21.9 Dysphagia R13.10 Family hx of colon cancer requiring screening colonoscopy Z80.0 Time Spent (min) 18
== END 2023-02-13 08:31 | disposition home or self-care (01) ==
PROVIDERS: Visit Provider Internal Medicine Gastroenterology
DX: K22.2 Esophageal obstruction (principal); K21.9 Gastro-esophageal reflux disease without esophagitis; R13.10 Dysphagia, unspecified; Z80.0 Family history of malignant neoplasm of digestive organs
CPT/HCPCS: 99213

== ENCOUNTER → 2023-02-13 07:51 | Outpatient (BNVA) | payer MEDICARE, BC, SELFPAY | PROVIDERS: Visit Provider Internal Medicine Gastroenterology | DX: K22.2 Esophageal obstruction (principal); K21.9 Gastro-esophageal reflux disease without esophagitis; R13.10 Dysphagia, unspecified; K44.9 Diaphragmatic hernia without obstruction or gangrene; Z80.0 Family history of malignant neoplasm of digestive organs | CPT/HCPCS: 99212 ==

== ENCOUNTER → 2023-03-24 07:50 | Outpatient (REF) | payer MEDICARE, BC, SELFPAY ==
--- NOTE | 2023-03-24 07:53 | CA_ITS ---
Transthoracic Echocardiogram Patient (Last, First, Middle): Ashley Resendez A Gender: Female Date of : 1950 Age: 72 Procedure Date: 03/24/2023 Procedure Type: Transthoracic Echocardiogram Location: OP Height: 165.1 cm Weight: 88.45 kg BSA: 1.96 m2 Heart Rate: bpm BP: 119 / 71 mmHg Head Of Quality: FERMIN Referring MD: Dario Melvin MD Symptoms: I05.1 MITRAL VALVE REGURG Study Quality: Adequate ECG Rhythm: Sinus Conclusions: - The left ventricular systolic function is normal. The calculated ejection fraction is 70% by biplane method. - There is mild calcification of the aortic valve. - There is trace mitral valve regurgitation. - There is mild tricuspid valve regurgitation. - Moderate plaque is seen in the sino tubular ridge. Findings Left Ventricle Normal left ventricular cavity size. The left ventricular systolic function is normal. The calculated ejection fraction is 70% by biplane method. There is no evidence of regional wall motion abnormalities. Diastolic function is normal for age. There is mild septal asymmetric hypertrophy. LV peak GLS 19.4%. Right Ventricle Normal right ventricular cavity size and systolic function. Atria Both atria are normal in size. Aortic Valve There is a normal trileaflet aortic valve. There is mild calcification of the aortic valve. There is no aortic valve stenosis. There is no aortic valve regurgitation. Mitral Valve The mitral valve appears normal. There is trace mitral valve regurgitation. There is no mitral valve stenosis. Pulmonic Valve The pulmonic valve is likely normal. Tricuspid Valve Normal tricuspid valve structure. There is mild tricuspid valve regurgitation. There is no evidence of pulmonary hypertension. Great Vessels The asc aorta and aortic arch are normal in size. Moderate plaque is seen in the sino tubular ridge. Venous The inferior vena cava is normal in size and collapses greater than 50% with inspiration. Pericardium/Pleural There is no evidence of pericardial effusion. Prior Study Comparison No significant change compared to prior study dated: 02/18/2020. Measurements 2D Linear Measurements IVSd: 1.31 0.6-0.9/0.6-1.0 cm LVIDd: 3.95 3.9-5.3/4.2-5.9 cm LVIDd Index: 2.02 2.4-3.2/2.2-3.1 cm/m2 LVIDs: 2.87 2.0-3.6 cm LVPWd: 1.02 0.7-1.1 cm LA Diam: 3.60 2.7-3.8/3.0-4.0 cm LAIDs Index: 1.84 1.5-2.3 cm/m2 LV Mass: 193.49 67-162/88-224 g LV Mass Index: 98.72 43-95/49-115 g/m2 LVOT Diam: 2.00 3.0+(-)1.3 cm 2D Systolic Function EF 4C: 71.00 >55% EF 2C: 68.70 >55% EF BiP: 70.30 >55% Mitral Valve MV Pk E: 0.72 MV PK A: 0.75 MV Decel Time: 247.00 E/A: 0.90 E'Lateral: 7.72 E'Medial: 4.57 E/E' Med: 15.70 E/E' Lat: 9.30 PHT: 72.00 MVA PHT: 3.06 Decel [place]: 2.90 Aortic Valve AoV Pk Faustino: 1.66 AoV Mn Faustino: 1.08 AoV VTI: 0.36 AoV Pk Grad: 11.00 Aov Mn Grad: 6.00 ELIANE Cont.VTI: 2.47 LVOT LVOT Pk Faustino: 1.30 LVOT Mn Faustino: 0.86 LVOT VTI: 0.29 LVOT Pk Grad: 7.00 LVOT Mn Grad: 3.00 LVOT Diam: 2.00 LVOT Area: 3.14 Diastolic Function MV Pk E: 0.72 MV Pk A: 0.75 E/A: 0.90 E'Medial: 4.57 E/E' Med: 15.70 E' Laterial: 7.72 E/E' Lat: 9.30 Right Ventricle TAPSE (mm): 23.40 TVS' Faustino: 11.90 Tricuspid Valve TR Pk Faustino: 2.11 TR Pk Grad: 18.00 RA Press: 3.00 RVSP: 21.00 Great Vessels Aorta Sinus of Valsalva: 3.16 2.0-3.[address] Ridge: 2.35 1.7-3.4 cm Ao Asc: 3.70 2.1-3.4 cm Ao Arch: 2.70 Updated in Other Vendor System with Status of Final Ted Bhanu MD electronically signed on 03/24/2023 11:00:07 AM with status of Final
== END ==
LOC: HO.CARD 07:50
PROVIDERS: PCP Family Medicine; Visit Provider Family Medicine
DX: I05.1 Rheumatic mitral insufficiency (principal)
CPT/HCPCS: 93306; 93356

== ENCOUNTER → 2023-03-24 07:53 | Outpatient (BNV) | payer MEDICARE, BC, SELFPAY | PROVIDERS: PCP Family Medicine; Visit Provider Internal Medicine | DX: I35.1 Nonrheumatic aortic (valve) insufficiency (principal); I36.1 Nonrheumatic tricuspid (valve) insufficiency | CPT/HCPCS: 93306 ==

== ENCOUNTER 2023-05-19 09:52 | Day surgery (SDC) | payer MEDICARE, BC, SELFPAY ==
[2023-05-15 11:46] VITALS: BMI 31.5
--- NOTE | 2023-05-16 09:58 | P.CONAN_ITS ---
Documented by User: Roseline Flores NP 05/16/23 09:59 HPI - Anesthesia Eval Consult details Narrative: 73yo F for Upper Endoscopy PMFSH Active Problems Active Problems: All Active Problems (Updated 08/15/22 @ 08:33 by Cristopher Grimm MD) Schatzki's ring (Acute) GERD (gastroesophageal reflux disease) (Acute) Invasive ductal carcinoma of right breast (Acute) Esophageal varices determined by endoscopy (Acute) Dysphagia (Acute) Family hx of colon cancer requiring screening colonoscopy (Acute) Ductal carcinoma in situ (DCIS) of right breast (Acute) Past Medical History Medical History Invasive ductal carcinoma of right breast Dysphagia Family hx of colon cancer requiring screening colonoscopy Hiatal hernia Hypercholesterolemia Hypertension Ductal carcinoma in situ (DCIS) of right breast Family History Family History Mother History of breast cancer, Onset Age: 60 Father Old age Brother Colon cancer Family history of problems with anesthesia: No Surgical History Surgical History Hx of endoscopy History of left knee replacement (08/04/17) History of total right knee replacement (03/11/17) History of breast reconstruction (07/27/12) History of esophagogastroduodenoscopy (EGD) (06/24/13) History of right mastectomy (10/24/11) History of colonoscopy History of dilation and curettage History of Problems with Anesthesia: No Social History Social History Household Members: Spouse Are you a primary direct support professional caregiver to a significant other at home: No Do you presently have visiting nurse or other home services: No Alcohol intake: current Alcohol intake frequency: does not drink Patient Tobacco Use Status: Never used Tobacco Use of substances other than those prescribed or required for medical reasons: No Are you DNR?: No Advance Directives: No Advance Directives Information Provided: Yes Advance Directives Date on File: 10/10/20 Meds Allergies Allergy/AdvReac Type Severity Reaction Status Date / Time No Known Allergies Allergy Verified 05/19/23 10:33 Home Medications Medication Instructions Recorded Confirmed Last Taken Type lisinopril 10 mg tablet 10 mg PO DAILY 06/28/20 05/19/2305/18/24 History simvastatin 40 mg tablet 40 mg PO BEDTIME 06/28/20 05/19/23 05/18/23 History famotidine 20 mg tablet 20 mg PO DAILY 05/14/21 05/19/23 05/19/23 History ascorbic acid (vitamin C) 1,000 mg 2 g PO Q8H 08/15/22 05/19/23 05/18/23 History capsule cholecalciferol (vitamin D3) 25 25 mcg PO DAILY 08/15/22 05/19/23 05/18/23 History mcg (1,000 unit) capsule flaxseed oil 1,000 mg capsule 1,000 mg PO DAILY 08/15/22 05/19/23 05/18/23 History triamcinolone acetonide 0.1 % appl topical 02/13/23 02/13/23 Unknown History topical cream Exam Height,Weight and Vital Signs: Height 5 ft 6 in Weight 88.451 kg Narrative Narrative: ECHO 03/2023 Conclusions: - The left ventricular systolic function is normal. The calculated ejection fraction is 70% by biplane method. - There is mild calcification of the aortic valve. - There is trace mitral valve regurgitation. - There is mild tricuspid valve regurgitation. - Moderate plaque is seen in the sino tubular ridge. No signif change c/w 2019 Assessment and Plan Assessment Anesthesia Assessment: Chart Reviewed Final Anesthetic Review Family History of Problems with Anesthesia: No History of Problems with Anesthesia: No Documented by User: Ermelinda Alvarado MD 05/19/23 10:57 [facility] Past Medical History Medical History Invasive ductal carcinoma of right breast Dysphagia Family hx of colon cancer requiring screening colonoscopy Hiatal hernia Hypercholesterolemia Hypertension Ductal carcinoma in situ (DCIS) of right breast Family History Family History Mother History of breast cancer, Onset Age: 60 Father Old age Brother Colon cancer Surgical History Surgical History Hx of endoscopy History of left knee replacement (08/04/17) History of total right knee replacement (03/11/17) History of breast reconstruction (07/27/12) History of esophagogastroduodenoscopy (EGD) (06/24/13) History of right mastectomy (10/24/11) History of colonoscopy History of dilation and curettage Social History Social History Household Members: Spouse Are you a primary direct support professional caregiver to a significant other at home: No Do you presently have visiting nurse or other home services: No Alcohol intake: current Alcohol intake frequency: does not drink Patient Tobacco Use Status: Never used Tobacco Use of substances other than those prescribed or required for medical reasons: No Are you DNR?: No Advance Directives: No Advance Directives Information Provided: Yes Advance Directives Date on File: 10/10/20 Meds Allergies Allergy/AdvReac Type Severity Reaction Status Date / Time No Known Allergies Allergy Verified 05/19/23 10:33 Home Medications Medication Instructions Recorded Confirmed Last Taken Type lisinopril 10 mg tablet 10 mg PO DAILY 06/28/20 05/19/23 05/18/23 History simvastatin 40 mg tablet 40 mg PO BEDTIME 06/28/20 05/19/23 05/18/23 History famotidine 20 mg tablet 20 mg PO DAILY 05/14/21 05/19/23 05/19/23 History ascorbic acid (vitamin C) 1,000 mg 2 g PO Q8H 08/15/22 05/19/23 05/18/23 History capsule cholecalciferol (vitamin D3) 25 25 mcg PO DAILY 08/15/22 05/19/23 05/18/23 History mcg (1,000 unit) capsule flaxseed oil 1,000 mg capsule 1,000 mg PO DAILY 08/15/22 05/19/23 05/18/23 History triamcinolone acetonide 0.1 % appl topical 02/13/23 02/13/23 Unknown History topical cream Exam Airway Mallampati Class: II TM Dist: >3cm Neck ROM: Full Heart: rrr Lungs: cta Assessment and Plan Assessment Anesthesia Assessment: Anesthesia Plan Discussed Final Anesthetic Review NPO: Yes ASA Class: II Final Preanesthetic Review: No Changes in Pt Med Stat, Meds/Allgs Chart Reviewed and Consent Obtained/Reviewed Patient Risk: Intermediate Procedure Risk: Intermediate Anesthetic Plan Anesthetic Plan: MAC: Disposition: Standard PACU
[2023-05-19 10:26] VITALS: BMI 32.4
[2023-05-19 10:51] VITALS: BP 139/82; PULSE 77; RESP 16; TEMP 36.1; O2SAT 98
--- NOTE | 2023-05-19 10:57 | MHC.SHP ---
Pre-Procedural Eval Section A Date of Service: 05/19/23 The patient is an INPATIENT: No The History & Physical has been completed within 30 days and I have reviewed it.: No Section B Chief Complaint: Dysphagia, history of Schatzki's ring Details of Present Illness: Dysphagia Relevant Family History (Specify if Yes): Yes Relevant Social History: None Present Medications: see Short Stay Collaborative assessment Medical History: Significant History (Ductal carcinoma in situ (DCIS) of right breast Dysphagia Family hx of colon cancer requiring screening colonoscopy Hiatal hernia Hypercholesterolemia Hypertension) History of Previous Operations: Relevant previous surgery/procedure and date(s) (History of breast reconstruction (07/27/12) History of colonoscopy History of dilation and curettage History of esophagogastroduodenoscopy (EGD) (06/24/13) History of left knee replacement (08/04/17) History of right mastectomy (10/24/11) History of total right knee replacement (03/11/17)) Allergies: Allergies Allergy/AdvReac Type Severity Reaction Status Date / Time No Known Allergies Allergy Verified 05/19/23 10:33 Review of Systems Sugical H&P ROS: Negative: Constitution, Cardiovascular and Respiratory and Yes, Specify: Gastrointestinal (dysphagia) Exam Surgical H&P Exam: Normal: Heart, Normal: Lungs, Normal: Extremities and Normal: Abdomen Plan Diagnosis/Plan: Unchanged I have reviewed the history and physical and performed a pertinent physical examination on my patient. No changes have occurred unless specified. Time Spent With Patient Time: Total time managing care of this patient today ____ minutes.
--- NOTE | 2023-05-19 11:50 | W.PM.OPN ---
Operative Note Operative Note Date of Service: 05/19/23 Narrative: FLEXIBLE TRANSORAL UPPER GASTROINTESTINAL ENDOSCOPY WITH BIOPSIES AND ESOPHAGEAL BALLOON DILATION Pre-op diagnosis: Dysphagia, Schatzki's ring Post-op diagnosis: Dysphagia, Schatzki's ring, hiatal hernia, gastric polyps, duodenal nodule Endoscopist:Teddy Grimm MD Anesthesia:?MAC Consent: Indications for the procedure and potential complications of bleeding, perforation, reaction to medications and missed diagnosis were discussed with the patient and informed consent was obtained. Instrument: Olympus GIF H 190 mid size upper endoscope Monitoring: Vital signs and clinical assessment, continuous EKG monitoring, Pulse oximetry, Carbon Dioxide monitoring and blood pressure monitoring were done throughout the procedure. Procedure: The patient was placed in the left lateral decubitis position and pre-procedure medications were administered and a bite block was placed. The endoscope was inserted into the mouth and advanced under direct vision to the third part of duodenum. A careful inspection was made as the upper endoscope was withdrawn including a retroflexed examination of the proximal stomach; Findings and interventions are described below. Findings: Larynx: Normal Esophagus: GE junction at 36 cms, hiatal hernia from 36-40 cms. No esophagitis or Sumner's. A partially obstructing Schatzki's ring at the GE junction. Biopsies were obtained from proximal esophagus for EoE. Esophageal balloon dilation was performed with a 20 mm CRE balloon for 60 seconds. Some heme noted at the GE junction after the procedure indicating rupture of the Schatzki's ring. Stomach: Multiple 5 mm to 1.5 cm benign-appearing gastric polyps - biopsied during past EGD. Grade 3 flap valve on retroflexed examination of the cardia. Duodenum: Normal bulb. A 2.5 cms benign appearing nodule (with normal overlying mucosa) in the proximal 2nd part of the duodenum - biopsied. Intervention: Biopsies and esophageal balloon dilation as noted above Impression and Post Procedure Diagnosis: Endoscopy Findings: ESOPHAGUS: GE junction at 36 cms, hiatal hernia from 36-40 cms. No esophagitis or Sumner's. A partially obstructing Schatzki's ring at the GE junction. Biopsies were obtained from proximal esophagus for EoE. Esophageal balloon dilation was performed with a 20 mm CRE balloon for 60 seconds. STOMACH: Multiple gastric polyps. DUODENUM: A 2.5 cms benign appearing nodule (with normal overlying mucosa) in the proximal 2nd part of the duodenum - easily compressed with biopsy forcep - ? submucosal lipoma. Plan: Await pathology results Patient has an appointment on 08/07/23 in the GI Clinic with Cristopher Grimm M.D. Repeat EGD with dilation prn for recurrent dysphagia Above findings were reviewed with the patient.
[2023-05-19 12:11] VITALS: BP 103/63; PULSE 86; RESP 16; TEMP 36.1; O2SAT 93
[2023-05-19 12:26] VITALS: BP 125/87; PULSE 80; RESP 16; TEMP 36.2; O2SAT 98
== END 2023-05-19 13:56 | disposition home or self-care (01) ==
PROVIDERS: PCP Family Medicine; Visit Provider Internal Medicine Gastroenterology
PROC: 0DJ08ZZ Inspection of Upper Intestinal Tract, Via Natural or Artificial Opening Endoscopic (ICD-10-PCS; CPT 43235; principal; 2023-05-19 11:50)
DX: K22.2 Esophageal obstruction (principal); K31.7 Polyp of stomach and duodenum; K31.89 Other diseases of stomach and duodenum; K44.9 Diaphragmatic hernia without obstruction or gangrene; K21.9 Gastro-esophageal reflux disease without esophagitis; Z85.3 Personal history of malignant neoplasm of breast; Z80.0 Family history of malignant neoplasm of digestive organs; I10 Essential (primary) hypertension; E78.00 Pure hypercholesterolemia, unspecified; Z79.899 Other long term (current) drug therapy
CPT/HCPCS: 43249; 43239; 88305; C1726; J2704

== ENCOUNTER → 2023-05-19 09:52 | Outpatient (BNV) | payer MEDICARE, BC, SELFPAY | PROVIDERS: PCP Family Medicine; Visit Provider Internal Medicine Gastroenterology | DX: K22.2 Esophageal obstruction (principal); K31.7 Polyp of stomach and duodenum; K31.89 Other diseases of stomach and duodenum | CPT/HCPCS: 43239; 43249 ==

== ENCOUNTER 2023-07-31 07:15 | Outpatient (REF) | payer MEDICARE, BC, SELFPAY ==
--- NOTE | ~2023-07-31 | MM_ITS ---
EXAMINATION: MM SCREENING DIGITAL BREAST TOMOSYNTHESIS, LEFT CLINICAL INFORMATION: Screening. Asymptomatic. The patient is status post right mastectomy from 2011. Patient is also status post left breast reduction. COMPARISON: Mammography: This study is compared with prior exams dating back to TECHNIQUE: Digital breast tomosynthesis is performed in both the craniocaudal and mediolateral oblique views along with computer-aided detection (CAD). Synthesized 2D images are generated from the tomosynthesis. FINDINGS: There are scattered areas of fibroglandular density (ACR BI-RADS breast composition Category b). There are no significant masses, abnormal calcifications, or other abnormalities. Post reduction changes are present in the left breast. MM/MM tomosynthesis screening LT IMPRESSION: No mammographic evidence of malignancy. ASSESSMENT: BI-RADS BI-RADS 2 - Benign Findings RECOMMENDATION: Routine annual mammography screening. 1 year F/U This examination should not preclude the clinical evaluation of a suspicious palpable abnormality. This patient's information was entered into a reminder system with a target due date for their next mammogram.
== END 2023-07-31 07:16 | disposition home or self-care (01) ==
LOC: HO.MAMMO 07:15
PROVIDERS: PCP Family Medicine; Visit Provider Family Medicine
DX: Z12.31 Encounter for screening mammogram for malignant neoplasm of breast (principal)
CPT/HCPCS: 77063; 77067

== ENCOUNTER → 2023-07-31 07:30 | Outpatient (BNV) | payer MEDICARE, BC, SELFPAY | PROVIDERS: PCP Family Medicine; Visit Provider Radiology Diagnostic Radiology | DX: Z12.31 Encounter for screening mammogram for malignant neoplasm of breast (principal) | CPT/HCPCS: 77063; 77067 ==

== ENCOUNTER 2023-10-17 07:29 | Outpatient (AMB) | payer MEDICARE, BC, SELFPAY ==
--- NOTE | 2023-10-17 07:36 | A.OFFVIS_ITS ---
Vital Signs 10/17/23 07:44 Height 5 ft 6 in Weight 199 lb BMI 32.1 BP 118/58 L Blood Pressure Location Lt brachial Position Sitting Pulse 72 Intake Visit Reasons: 6 month follow up Intake Note: Patient for Dysphagia and Endoscopy results. Patient cc: difficulty swallowing, denies any other GI issues. [facility] Agent Required: No Accompanied by: Self / Same As Patient Allergies No Known Allergies Allergy (Verified 10/17/23 07:34) Medication List - Last Reconciled 10/17/23 by Cristopher Grimm MD ascorbic acid (vitamin C) 2 grams PO Q8H cholecalciferol (vitamin D3) 25 mcg PO DAILY famotidine 20 mg PO DAILY flaxseed oil 1,000 mg PO DAILY lisinopril 10 mg PO DAILY simvastatin 40 mg PO BEDTIME triamcinolone acetonide 0.1% appl topical HPI HPI 6 month follow up: Details: GI clinic visit for this 72-year-old female for follow-up of dysphagia. IMAGING STUDIES:? 07/03/21 BARIUM SWALLOW SHOWED: Following oral administration of thick barium and effervescent granules, there is normal propagation of bolus from the oral cavity through the pharynx into esophagus without any evidence of obstruction, narrowing or stricture. Minimal retention of barium was seen in the left pyriform sinus on delayed images. No laryngeal penetration or aspiration. On placing patient prone lying and oral administration of thin barium, there is good distention of the esophagus without any intraluminal filling defect or extrinsic compression. There is a nonreducible hiatal hernia with mild gastroesophageal reflux. 11/01/30 US WITH ELASTOGRAPHY SHOWED: 1. Impression: Unremarkable exam 2. Liver elastography:? Adequate sampling. Normal liver stiffness. ENDOSCOPIC STUDIES: 05/19/23 EGD SHOWED: hiatal hernia from 36-40 cms. No esophagitis or Sumner's. A partially obstructing Schatzki's ring at the GE junction. Biopsies were obtained from proximal esophagus for EoE. Esophageal balloon dilation was performed with a 20 mm CRE balloon for 60 seconds. STOMACH: Multiple gastric polyps. 10/10/20? EGD AND COLONOSCOPY SHOWED:? Endoscopy Findings: ESOPHAGUS: Grade 1-2 esophageal varices from 30 to 35 cms.? GE junction at 36 cms, hiatal hernia 36 to 40 cms.? A partially obstructing Schatzki's ring/focal stricture at GEJ.? No esophagitis or Sumner's.? Biopsies were obtained from the stricture. Esophageal balloon dilation was performed with a 20 mm CRE balloon x 60 seconds x 1. STOMACH: Multiple gastric polyps Colonoscopy Findings:? No polyps were detected Moderate to severe diverticulosis seen in the left colon Plan:? Patient has an appointment on 11/09/20 in the GI Clinic with Cristopher Grimm M.D.. Repeat Colonoscopy in 5 years due to a hx of adenomatous colon polyps. Above findings were reviewed with the patient and Gastric polyps and diverticulosis handouts were given in the discharge area BIOPSIES SHOWED: A.? Stomach, polyp, biopsy:? Fundic gland polyp with background mild chronic inactive inflammation; no Helicobacter organisms seen. B.? Esophagus, stricture, biopsy: - Cardiac-type mucosa with moderate chronic inactive inflammation; no intestinal metaplasia seen. - Chronic esophagitis. TODAY'S VISIT: Dysphagia improved for a few days after EGD and dilation. Notes recurrent dysphagia to solids atleast once a week. Denies episodes of food impaction) (She was having more frequent dysphagia prior to EGD) PAST VISIT Occasional dysphagia 1-3 times a month - usually with dry foods - tries to be very careful Every once in a while the food sticks and feels like a bubble Food ultimately goes down - has learned a few tricks. Makes sure food is moist. Food can get stuck once a month - is able to walk around and dysphagia is relieved. Occasionally has to regurgitate Barium swallow results reviewed with the patient. Being careful with what she eats and taking time to chew her food Denies heartburn. Takes Famotidine daily. Had a few episodes of food getting stuck - a piece of salmon with sauce got stuck for 1/2 an hour. Minor episodes every 1-2 weeks. Noted improvement in dysphagia after EGD. Seems to be coming back slowly. Notes coughing if throat is dry despite drinking water. Patient denies symptoms of heartburn, dysphagia, nausea, vomiting, change in appetite or weight.? Denies recent change in bowel habits, constipation, diarrhea, black stools or rectal bleeding. Patient denies major cardiac or pulmonary problems, loud snoring or sleep apnea Denies problems with anesthesia in the past. Denies being on chronic anticoagulation. Positive family history of colon cancer (brother at age 57 yrs and a month?after [facility] Medical History Invasive ductal carcinoma of right breast Dysphagia Family hx of colon cancer requiring screening colonoscopy Hiatal hernia Hypercholesterolemia Hypertension Ductal carcinoma in situ (DCIS) of right breast Surgical History (Updated 10/17/23 @ 07:31 by Alycia Vazquez) Hx of endoscopy History of left knee replacement (08/04/17) History of total right knee replacement (03/11/17) History of breast reconstruction (07/27/12) History of esophagogastroduodenoscopy (EGD) (06/24/13) History of right mastectomy (10/24/11) History of colonoscopy History of dilation and curettage Family History Mother History of breast cancer, Onset Age: 60 Father Old age Brother Colon cancer Social History Household Members: Spouse Are you a primary care associate to a significant other at home: No Do you presently have visiting nurse or other home services: No Alcohol intake: current Alcohol intake frequency: does not drink Patient Tobacco Use Status: Never used Tobacco Advance Directives Date on File: 10/10/20 Review of Systems Const All systems reviewed & are unremarkable except as noted in HPI and below Physical Exam Const General: healthy appearing and no acute distress Nutritional Appearance: average body habitus Orientation/consciousness: patient oriented x3 Limitations: no limitations HEENT Head: Yes normal to inspection Ears: hearing grossly normal bilaterally Mouth: Normal oral and palatal mucosa present Eyes Sclerae: sclerae normal Pupils: Equal, round and reactive pupils present Neck Neck: Yes normal visual inspection Chest Chest palpation & inspection: normal inspection of the chest Resp Effort & Inspection: normal respiratory effort Auscultation: clear to auscultation bilaterally Cardio Palpation: normal PMI Rate: regular rate Rhythm: regular rhythm Heart sounds: S1 normal heart sound present, S2 normal heart sound present and no murmurs GI Palpation (GI): Soft to palpation, nontender and No hepatosplenomegaly present Auscultation: normal bowel sounds Rectal Exam - Female: deferred Skin General skin exam: no rashes or lesions noted Neuro General: patient oriented x3, gait normal and moves all extremities Cranial nerves: Yes Equal, round and reactive pupils present Psych Appearance: grossly normal Mental Status: mental status grossly normal Assessment & Plan Assessment & Plan (1) Family hx of colon cancer requiring screening colonoscopy: Comment: 10/10/20 Colonoscopy Findings: No polyps were detected Moderate to severe diverticulosis seen in the left colon Plan: Repeat Colonoscopy in 5 years due to a hx of adenomatous colon polyps. Code(s): Z80.0 - Family history of malignant neoplasm of digestive organs Category: Medical (2) Dysphagia: Comment: 07/2021 Barium swallow showed: No intraluminal filling defect or extrinsic compression. There is a nonreducible hiatal hernia with mild gastroesophageal reflux. Code(s): R13.10 - Dysphagia, unspecified Category: Medical (3) GERD (gastroesophageal reflux disease): Code(s): K21.9 - Gastro-esophageal reflux disease without esophagitis Category: Medical (4) Schatzki's ring: Code(s): K22.2 - Esophageal obstruction Category: Medical Plan 73 YF with Hypertension, hypercholesterolemia and DCIS of right breast followed in GI for dysphagia? due to Schatzki's ring and family history of colon cancer EGD AND COLONOSCOPY SHOWED: Endoscopy Findings:? ESOPHAGUS: Grade 1-2 esophageal varices from 30 to 35 cms.? GE junction at 36 cms, hiatal hernia 36 to 40 cms.? A partially obstructing Schatzki's ring/focal stricture at GEJ.? No esophagitis or Sumner's.? Biopsies were obtained from the stricture. Esophageal balloon dilation was performed with a 20 mm CRE balloon x 60 seconds x 1. STOMACH: Multiple gastric polyps 07/2021 barium swallow was performed and findings as noted above 05/2023 EGD showed a Shatzki's ring and balloon dilation was performed Pt was advised to schedule repeat EGD with dilation - Pt would like to schedule in 5-6 months. She was advised to call the GI clinic if she experienced worsening dysphagia to schedule an earlier appt for EGD with dilation Follow-up appointment in 6 month Coding Level of Care Code Est Pt Level 3 (69618) Diagnoses Family hx of colon cancer requiring screening colonoscopy Z80.0 Dysphagia R13.10 GERD (gastroesophageal reflux disease) K21.9 Schatzki's ring K22.2 Time Spent (min) 16
[2023-10-17 07:44] VITALS: BP 118/58; PULSE 72; BMI 32.1
== END 2023-10-17 08:02 | disposition home or self-care (01) ==
PROVIDERS: PCP Family Medicine; Visit Provider Internal Medicine Gastroenterology
DX: Z80.0 Family history of malignant neoplasm of digestive organs (principal); R13.10 Dysphagia, unspecified; K21.9 Gastro-esophageal reflux disease without esophagitis; K22.2 Esophageal obstruction
CPT/HCPCS: 99213

== ENCOUNTER → 2023-10-17 07:29 | Outpatient (BNVA) | payer MEDICARE, BC, SELFPAY | PROVIDERS: PCP Family Medicine; Visit Provider Internal Medicine Gastroenterology | DX: R13.10 Dysphagia, unspecified (principal); K21.9 Gastro-esophageal reflux disease without esophagitis; K22.2 Esophageal obstruction; Z80.0 Family history of malignant neoplasm of digestive organs; Z98.890 Other specified postprocedural states | CPT/HCPCS: 99212 ==

== ENCOUNTER 2024-04-22 07:48 | Outpatient (AMB) | payer MEDICARE, BC, SELFPAY ==
--- OUTSIDE RECORDS SUMMARY | 2024-04-22 07:50 | XMS_ITS | Patient Health Record ---
Author Organization Ashok Ly III, MD Address [address] [place] [address] [place] [address] Care Team Providers Care Sludge Filtration Attendant Name Role Phone Olegario VASQUEZ, Dario Primary Care Provider Unavailab Ashok Li Unavailable [phone] Allergies No Known Allergies Reason For Referral No Information Medications Medication SIG (Take, Route, Fr equency, Duration) Notes Start Date End Date Status Simvastatin 40 MG 1 tablet in the even ing Orally at night Active Lisinopril 10 MG 1 tablet Orally Once a day Active Immunizations Vaccine Route Administration Date Status Comme nts PPV 23 Unknown 05/09/2020 Administered COVID PFIZER Unknown 07/23/2020 Administered COVID PFIZER Unknown 09/06/2021 Administered PCV13 Unknown 05/07/2019 Administered COVID PFIZER Unknown 07/02/2020 Administered COVID PFIZER Unknown 01/30/2021 Administered Social History Tobacco Use: Social History Observation Description Date Details (start date - stop date) Never Smoker NA - NA Tobacco Use/Smoking Question Answer Notes Patient is a nonsmoker Additional Findings: Tobacco Non-User Aggressive non-smoker Alcohol Screen Question Answer Notes Did you have a drink containing alcohol in the p ast year? No Points 0 Interpretation Negative Problems Problem Type SNOMED Code ICD Code Onset Dates Problem Status W/U Status Risk Notes Problem 436811618 Obesity (E66.9) Active confirmed Her body mass index remains elevated at 33. We discussed nutrition weight loss and regular exercise today. Problem 169775335 Malignant neopla sm of upper-outer quadrant of right female breast (C50.411) Active confirmed There is no sign of a new primary are of her recurrence. She has completed her adjuvant therapy. Surveillance will continue. Problem 008523097 Gastro-esophagea l reflux disease without esophagitis (K21.9) Active confirmed Her reflux is controlled well with [id number] er medications. Problem 80518438 Essential hypertension (I10) Active confirmed Her blood pressure today was 126/74. This is in the normal range and no change in her regimen as needed. Problem 53014892 Other and unspecified hyperlipidemia (E78.5) Active confirmed I have strongly recommended she reduce the amount of animal fat in her diet and exercise regularly and lose weight. We discussed nutrition length today. Problem 392667947 Osteoarthritis o f multiple joints, unspecified osteoarthritis type (M15.9) Active confirmed She was continued on the current therapy prescribed by the primary care physician. 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 If she has this she will go to the emergency room for EKG. Problem 01548119 Other osteoporos is (M81.8) Active confirmed I have recommended bone density measurement ever two years. She will continue on the anastrozole. She is free of bone pain today. I have recommended Os-Addy 500 mg twice a day with 1000 units of vitamin D daily. Plan Of Treatment Pending Test Test Name Order Date MAMMOGRAM DIGITAL SCREEN LEFT UNI 2017 Insurance Providers Payer Name Payer Address Payer Phone Subscriber Number Group Number Insured Name Patient Relationship to Insured Coverage Start Date Coverage End Date MEDICARE NGS [address] [place] [phone] [id number] Ashley Eubanks Self - patient is the insured [facility] [address] [place], [place] [id number] Ashley Eubanks Self - patient is the insured Medical (General) History Medical History History ICD Code breast cancer Stage I 2011 hypertension hyperlipidemia gerd osteoarthritis achalasia premature atrial contractions 2011 fracture right wrist November 13, 2016 anastrozole quit date Surgical History Surgery Date(Month/Year) right modified radical mastectomy 2011 colonoscopy 2006
--- NOTE | 2024-04-22 07:52 | A.OFFVIS_ITS ---
Vital Signs 04/22/24 08:01 Height 5 ft 6 in Weight 195 lb BMI 31.5 BP 106/67 Blood Pressure Location Lt brachial Position Sitting Pulse 92 Intake Visit Reasons: 6 month follow up Intake Note: Patient follow up for dysphagia. Patient cc: swallowing problems with solid food, denies ny other issues for today. 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 Performed in 2011for follow-up of dysphagia. TODAY'S VISIT: Patient cc: swallowing problems with solid food, denies ny other issues for today. Recurrent problems with dysphagia associated with intake of solids. Notes trouble initiating swallowing and points to the throat as location of dysphagia Denies coughing spells with swallowing Symptoms improved for a month after EGD and dilation. Has labs done at [facility] on an annual basis PAST VISIT Dysphagia improved for a few days after EGD and dilation. Notes recurrent dysphagia to solids atleast once a week. Denies episodes of food impaction) (She was having more frequent dysphagia prior to EGD) Occasional dysphagia 1-3 times a month - usually with dry foods - tries to be very careful Every once in a while the food sticks and feels like a bubble Food ultimately goes down - has learned a few tricks. Makes sure food is moist. Food can get stuck once a month - is able to walk around and dysphagia is r elieved. Occasionally has to regurgitate Barium swallow results reviewed with the patient. Being careful with what she eats and taking time to chew her food Denies heartburn. Takes Famotidine daily. Had a few episodes of food getting stuck - a piece of salmon with sauce got stuck for 1/2 an hour. Minor episodes every 1-2 weeks. Noted improvement in dysphagia after EGD. Seems to be coming back slowly. Notes coughing if throat is dry despite drinking water. Patient denies symptoms of heartburn, dysphagia, nausea, vomiting, change in appetite or weight.? Denies recent change in bowel habits, constipation, diarrhea, black stools or rectal bleeding. Patient denies major cardiac or pulmonary problems, loud snoring or sleep apnea Denies problems with anesthesia in the past. Denies being on chronic anticoagulation. Positive family history of colon cancer (brother at age 57 yrs and a month?after IMAGING STUDIES:? 07/03/21 BARIUM SWALLOW SHOWED: Following oral administration of thick barium and effervescent granules, there is normal propagation of bolus from the oral cavity through the pharynx into esophagus without any evidence of obstruction, narrowing or stricture. Minimal retention of barium was seen in the left pyriform sinus on delayed images. No laryngeal penetration or aspiration. On placing patient prone lying and oral administration of thin barium, there is good distention of the esophagus without any intraluminal filling defect or extrinsic compression. There is a nonreducible hiatal hernia with mild gastroesophageal reflux. 11/01/30 US WITH ELASTOGRAPHY SHOWED: 1. Impression: Unremarkable exam 2. Liver elastography:? Adequate sampling. Normal liver stiffness. ENDOSCOPIC STUDIES: 05/19/23 EGD SHOWED: hiatal hernia from 36-40 cms. No esophagitis or Sumner's. A partially obstructing Schatzki's ring at the GE junction. Biopsies were obtained from proximal esophagus for EoE. Esophageal balloon dilation was performed with a 20 mm CRE balloon for 60 seconds. STOMACH: Multiple gastric polyps. 10/10/20? EGD AND COLONOSCOPY SHOWED:? Endoscopy Findings: ESOPHAGUS: Grade 1-2 esophageal varices from 30 to 35 cms.? GE junction at 36 cms, hiatal hernia 36 to 40 cms.? A partially obstructing Schatzki's ring/focal stricture at GEJ.? No esophagitis or Sumner's.? Biopsies were obtained from the stricture. Esophageal balloon dilation was performed with a 20 mm CRE balloon x 60 seconds x 1. STOMACH: Multiple gastric polyps Colonoscopy Findings:? No polyps were detected Moderate to severe diverticulosis seen in the left colon Plan:? Patient has an appointment on 11/09/20 in the GI Clinic with Cristopher Grimm M.D.. Repeat Colonoscopy in 5 years due to a hx of adenomatous colon polyps. Above findings were reviewed with the patient and Gastric polyps and diverticulosis handouts were given in the discharge area BIOPSIES SHOWED: A.? Stomach, polyp, biopsy:? Fundic gland polyp with background mild chronic inactive inflammation; no Helicobacter organisms seen. B.? Esophagus, stricture, biopsy: - Cardiac-type mucosa with moderate chronic inactive inflammation; no intestinal metaplasia seen. - Chronic esophagitis. [facility] Medical History (Updated 04/22/24 @ 08:15 by Cristopher Grimm MD) Invasive ductal carcinoma of right breast Dysphagia Family hx of colon cancer requiring screening colonoscopy Hiatal hernia Hypercholesterolemia Hypertension Ductal carcinoma in situ (DCIS) of right breast Surgical History Hx of endoscopy History of left knee replacement (08/04/17) History of total right knee replacement (03/11/17) History of breast reconstruction (07/27/12) History of esophagogastroduodenoscopy (EGD) (06/24/13) History of right mastectomy (10/24/11) History of colonoscopy History of dilation and curettage Family History Mother History of breast cancer, Onset Age: 60 Father Old age Brother Colon cancer Social History Household Members: Spouse Are you a primary behavioral health care manager to a significant other at home: No Do you presently have visiting nurse or other home services: No Alcohol intake: current Alcohol intake frequency: does not drink Patient Tobacco Use Status: Never used Tobacco Advance Directives Date on File: 10/10/20 Review of Systems Const All systems reviewed & are unremarkable except as noted in HPI and below Physical Exam Vital Signs: Last Vital Signs Pulse 92 04/22/24 08:01 BP 106/67 04/22/24 08:01 BMI result Body Mass Index 31.5 Const General: healthy appearing and no acute distress Nutritional Appearance: average body habitus Orientation/consciousness: patient oriented x3 Limitations: no limitations HEENT Head: Yes normal to inspection Ears: hearing grossly normal bilaterally Mouth: Normal oral and palatal mucosa present Eyes Sclerae: sclerae normal Pupils: Equal, round and reactive pupils present Neck Neck: Yes normal visual inspection Chest Chest palpation & inspection: normal inspection of the chest Resp Effort & Inspection: normal respiratory effort Auscultation: clear to auscultation bilaterally Cardio Palpation: normal PMI Rate: regular rate Rhythm: regular rhythm Heart sounds: S1 normal heart sound present, S2 normal heart sound present and no murmurs GI Palpation (GI): Soft to palpation, nontender and No hepatosplenomegaly present Auscultation: normal bowel sounds Rectal Exam - Female: deferred Skin General skin exam: no rashes or lesions noted Neuro General: patient oriented x3, gait normal and moves all extremities Cranial nerves: Yes Equal, round and reactive pupils present Psych Appearance: grossly normal Mental Status: mental status grossly normal Assessment & Plan Assessment & Plan (1) Family hx of colon cancer requiring screening colonoscopy: Comment: 10/10/20 Colonoscopy Findings: No polyps were detected Moderate to severe diverticulosis seen in the left colon Plan: Repeat Colonoscopy in 5 years due to a hx of adenomatous colon polyps. Code(s): Z80.0 - Family history of malignant neoplasm of digestive organs Category: Medical (2) Dysphagia: Comment: 07/2021 Barium swallow showed: No intraluminal filling defect or extrinsic compression. There is a nonreducible hiatal hernia with mild gastroesophageal reflux. Code(s): R13.10 - Dysphagia, unspecified Category: Medical (3) GERD (gastroesophageal reflux disease): Code(s): K21.9 - Gastro-esophageal reflux disease without esophagitis Category: Medical (4) Schatzki's ring: Code(s): K22.2 - Esophageal obstruction Category: Medical (5) Oropharyngeal dysphagia: Code(s): R13.12 - Dysphagia, oropharyngeal phase Category: Medical Plan 73 YF with Hypertension, hypercholesterolemia and DCIS of right breast followed in GI for dysphagia? due to Schatzki's ring and family history of colon cancer EGD AND COLONOSCOPY SHOWED: Endoscopy Findings:? ESOPHAGUS: Grade 1-2 esophageal varices from 30 to 35 cms.? GE junction at 36 cms, hiatal hernia 36 to 40 cms.? A partially obstructing Schatzki's ring/focal stricture at GEJ.? No esophagitis or Sumner's.? Biopsies were obtained from the stricture. Esophageal balloon dilation was performed with a 20 mm CRE balloon x 60 seconds x 1. STOMACH: Multiple gastric polyps 07/2021 barium swallow was performed and findings as noted above 05/2023 EGD showed a Shatzki's ring and balloon dilation was performed Pt was advised to schedule repeat EGD with dilation - Pt would like to schedule in 5-6 months. She was advised to call the GI clinic if she experienced worsening dysphagia to schedule an earlier appt for EGD with dilation 04/22/24 Recurrent problems with dysphagia associated with intake of solids. Notes trouble initiating swallowing and points to the throat as location of dysphagia Denies coughing spells with swallowing Pt advised to schedule a MBS with speech pathology and an EGD with dilation. Advised to chew her food well, eat slowly and take fluids while eating Follow-up appointment in 6 months Orders: Orders [place] Modified Barium Swallow Today R13.12 - Dysphagia, oropharyngeal phase Coding Level of Care Code Est Pt Level 3 (64879) Diagnoses Family hx of colon cancer requiring screening colonoscopy Z80.0 Dysphagia R13.10 GERD (gastroesophageal reflux disease) K21.9 Schatzki's ring K22.2 Oropharyngeal dysphagia R13.12 Time Spent (min) 15
[2024-04-22 08:01] VITALS: BP 106/67; PULSE 92; BMI 31.5
== END 2024-04-22 08:25 | disposition home or self-care (01) ==
PROVIDERS: PCP Family Medicine; Visit Provider Internal Medicine Gastroenterology
DX: Z80.0 Family history of malignant neoplasm of digestive organs (principal); R13.10 Dysphagia, unspecified; K21.9 Gastro-esophageal reflux disease without esophagitis; K22.2 Esophageal obstruction; R13.12 Dysphagia, oropharyngeal phase
CPT/HCPCS: 99213

== ENCOUNTER → 2024-04-22 07:48 | Outpatient (BNVA) | payer MEDICARE, BC, SELFPAY | PROVIDERS: PCP Family Medicine; Visit Provider Internal Medicine Gastroenterology | DX: R13.10 Dysphagia, unspecified (principal); K21.9 Gastro-esophageal reflux disease without esophagitis; K22.2 Esophageal obstruction; R13.12 Dysphagia, oropharyngeal phase; Z80.0 Family history of malignant neoplasm of digestive organs | CPT/HCPCS: 99212 ==

== ENCOUNTER 2024-08-11 07:18 | Outpatient (REF) | payer MEDICARE, BC, SELFPAY ==
--- OUTSIDE RECORDS SUMMARY | 2024-08-11 07:21 | XMS_ITS | Patient Health Record ---
Author Organization Ashok Ly III, MD Address [address] [place] [address] [place] [address] Care Team Providers Care [employer] Name Role Phone Olegario VASQUEZ, Dario Primary Care Provider Unavailab Ashok Li Unavailable [phone] Allergies No Known Allergies Reason For Referral [...] Problem Status W/U Status Risk Notes Problem 202431107 Obesity (E66.9) Active confirmed Her body mass index remains elevated at 33. We discussed nutrition weight loss and regular exercise today. Problem 543686653 Malignant neopla sm of upper-outer quadrant of right female breast (C50.411) Active confirmed There is no sign of a new primary are of her recurrence. She has completed her adjuvant therapy. Surveillance will continue. Problem 291388307 Gastro-esophagea l reflux disease without esophagitis (K21.9) Active confirmed Her reflux is controlled well with [id number] er medications. Problem 31978679 Essential hypertension (I10) Active confirmed Her blood pressure today was 126/74. This is in the normal range and no change in her regimen as needed. Problem 83807545 Other and unspecified hyperlipidemia (E78.5) Active confirmed I have strongly recommended she reduce the amount of animal fat in her diet and exercise regularly and lose weight. We discussed nutrition length today. Problem 222560051 Osteoarthritis o f multiple joints, unspecified osteoarthritis type (M15.9) Active confirmed She was continued on the current therapy prescribed by the primary care physician. 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 If she has this she will go to the emergency room for EKG. Problem 72300501 Other osteoporos is (M81.8) Active confirmed I [...] MEDICARE NGS [address] [place] [address] [phone] [id number] Ashley Eubanks Self - patient is the insured [facility] [address] [place], [place] [id number] Ashley Eubanks Self - patient is the insured Medical (General) History Medical History History ICD Code breast cancer Stage I 2011 hypertension hyperlipidemia gerd osteoarthritis achalasia premature atrial contractions 2011 fracture right wrist November 13, 2016 anastrozole quit date Surgical History Surgery Date(Month/Year) right modified radical mastectomy 2011 colonoscopy 2006
== END 2024-08-11 07:19 | disposition home or self-care (01) ==
LOC: HO.MAMMO 07:18
PROVIDERS: PCP Family Medicine; Visit Provider Family Medicine
DX: Z12.31 Encounter for screening mammogram for malignant neoplasm of breast (principal)
CPT/HCPCS: 77063; 77067

== ENCOUNTER → 2024-08-11 07:30 | Outpatient (BNV) | payer MEDICARE, BC, SELFPAY | PROVIDERS: PCP Family Medicine; Visit Provider Internal Medicine | DX: Z12.31 Encounter for screening mammogram for malignant neoplasm of breast (principal) | CPT/HCPCS: 77063; 77067 ==

== ENCOUNTER 2024-08-16 14:14 | Outpatient (REF) | payer MEDICARE, BC, SELFPAY ==
--- NOTE | ~2024-08-16 | FL_ITS ---
EXAMINATION: XR BARIUM SWALLOW CLINICAL INFORMATION: Dysphagia COMPARISON: None available. TECHNIQUE: Modified barium swallow was performed under lateral fluoroscopy in presence of speech therapist and oral administration of various consistencies of food by the therapist. FINDINGS: On oral administration of thick, thin barium, nectar and honey consistency barium as well as solid food coated barium there is normal oral mastication and propagation of bolus from the oral cavity through the pharynx and esophagus. No laryngeal penetration or aspiration seen. There is no retention of food in the valleculae or piriform sinuses. Incidental note is made of grade 1 anterolisthesis C4-C5. There is loss of C5-6 and C6 testis 7 disc heights with mild ventral spondylosis. FLUOROSCOPY TIME: 32 seconds DOSE AREA PRODUCT: 94 mg uGy-m2 (microgray-meter squared) FL/FL Modified Barium Swallow IMPRESSION: Unremarkable modified barium swallow. Compare with speechist report. Electronically signed by: Wilfrido Brody MD 08/17/2024 07:52 AM EDT
--- OUTSIDE RECORDS SUMMARY | 2024-08-16 16:37 | XMS_ITS | Patient Health Record ---
Author Organization Ashok Ly III, MD Address [address] [place] [address] [place] [address] Care Team Providers Care [employer] Name Role Phone Olegario VASQUEZ, Dario Primary Care Provider Unavailab Ashok Li Unavailable [phone] Allergies No Known Allergies Reason For Referral [...] Problem Status W/U Status Risk Notes Problem 447920063 Obesity (E66.9) Active confirmed Her body mass index remains elevated at 33. We discussed nutrition weight loss and regular exercise today. Problem 269205051 Malignant neopla sm of upper-outer quadrant of right female breast (C50.411) Active confirmed There is no sign of a new primary are of her recurrence. She has completed her adjuvant therapy. Surveillance will continue. Problem 629261335 Gastro-esophagea l reflux disease without esophagitis (K21.9) Active confirmed Her reflux is controlled well with [id number] er medications. Problem 80160425 Essential hypertension (I10) Active confirmed Her blood pressure today was 126/74. This is in the normal range and no change in her regimen as needed. Problem 78217905 Other and unspecified hyperlipidemia (E78.5) Active confirmed I have strongly recommended she reduce the amount of animal fat in her diet and exercise regularly and lose weight. We discussed nutrition length today. Problem 743395268 Osteoarthritis o f multiple joints, unspecified osteoarthritis type (M15.9) Active confirmed She was continued on the current therapy prescribed by the primary care physician. 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 If she has this she will go to the emergency room for EKG. Problem 23394801 Other osteoporos is (M81.8) Active confirmed I [...] MEDICARE NGS [address] [place] [address] [phone] [id number] Ashley Eubanks Self - patient is the insured [facility] [address] [place], [place] [id number] 33 [id number] Ashley Eubanks Self - patient is the insured Medical (General) History Medical History History ICD Code breast cancer Stage I 2011 hypertension hyperlipidemia gerd osteoarthritis achalasia premature atrial contractions 2011 fracture right wrist November 13, 2016 anastrozole quit date Surgical History Surgery Date(Month/Year) right modified radical mastectomy 2011 colonoscopy 2006
--- NOTE | 2024-08-17 12:56 | MHC.SL.IMP ---
Date of Plan of Treatment: 08/16/24 Onset of Symptoms/Illness: 06/18/24 Date Treatment Started: 08/16/24 Admitting Diagnosis: Dysphagia Primary Speech & Language Diagnosis: R13.10 Dysphagia Reason for Today's Visit: 69942 Modified Barium Swallow Study Pre-evaluation Dietary Consistencies: Regular Pre-evaluation Liquid Consistency: Thin Pre-evaluation Medication Administration: Whole with Liquid Medical History: Modified Barium Swallow Study Fluoroscopic Evaluation of Swallowing Function CPT Code 33192 Evaluation Year: 2024 Reason for Study: Pt reporting difficulty swallowing. Referring Physician: Cristopher Grimm MD Evaluating Clinician: Diana Jules MA, CCC-GEAR LAPPER Study Number: 1 Patient Name: Ashley Resendez Status: Outpatient, Ambulatory Age: 74 Gender: Female Medical History Medical History (Updated 04/22/24 @ 08:15 by Cristopher Grimm MD) Invasive ductal carcinoma of right breast Dysphagia Family hx of colon cancer requiring screening colonoscopy Hiatal hernia Hypercholesterolemia Hypertension Ductal carcinoma in situ (DCIS) of right breast Surgical History Hx of endoscopy History of left knee replacement (08/04/17) History of total right knee replacement (03/11/17) History of breast reconstruction (07/27/12) History of esophagogastroduodenoscopy (EGD) (06/24/13) History of right mastectomy (10/24/11) History of colonoscopy History of dilation and curettage Current (pre-evaluation) Intake/Diet: Route: PO Diet Grade: Regular Liquid Consistencies: Thin Pre-Study Functional Oral Intake Scale (FOIS): 7- Total oral intake with no restrictions Pain: None reported at time of study SUBJECTIVE: Patient is a 74 year old female referred for a modified barium swallow study (MBSS) by the Gastroenterology office. Patient reports difficulty swallowing solid foods, stating that she has trouble initiating a swallow and feels food getting hung up in her throat. When asked to localize this sensation, patient pointed below the thyroid cartilage. Patient denies coughing or choking, but says that sometimes she regurgitates food. Per Dr. Grimm, patient had EGD with dilation and reported improvement in symptoms for about a month. Upper endoscopy in May showed, ?No esophagitis or Sumner's. A partially obstructing Schatzki's ring at the GE junction.? Oral Motor Exam Facial Symmetry: Symmetrical Mouth Occlusion: Normal Oral-Facial Teeth Characteristics: Intact/Normal Dental Appliance Oral-Facial Lip Pucker Description: Normal Oral-Facial Smile (Lips) Description: Normal Oral-Facial Puff Cheeks Description: Normal Tongue Size: Normal Tongue Excursion Description: Normal Tongue Range of Movement Description: Normal Tongue Speed of Movement Description: Normal Tongue Strength of Movement (against opposing pressure): Normal Tongue Movement Characteristics: Normal/Absent Is patient able to manage secretions?: Yes Is patient able to produce volitional cough?: Yes Food and Liquid Trials: Oral Impairment: Lip Closure: Did not test Oral Impairment: Tongue Control During Bolus Hold: 0=Cohesive bolus between tongue to palatal seal Oral Impairment: Bolus Preparation/Mastication: 0=Timely and efficient chewing and mashing Oral Impairment: Bolus Transport/Lingual Motion: 2=Slowed tongue motion Oral Impairment: Oral Residue: 1=Trace residue lining oral structures Oral Impairment:Initiation of Pharyngeal Swallow: 1=Bolus head in valleculae Pharyngeal Impairment: Soft Palate Elevation: 0=No bolus between soft palate (SP)/pharyngeal wall (PW) Pharyngeal Impairment: Laryngeal Elevation: 1=Partial thyroid cartilage/arytenoids to epiglottic petiole movement Pharyngeal Impairment: Anterior Hyoid Excursion: 1=Partial anterior movement Pharyngeal Impairment: Epiglottic Movement: 1=Partial inversion Pharyngeal Impairment: Laryngeal Vestibular Closure:: 1=Incomplete: narrow column air/contrast in laryngeal vestibule Pharyngeal Impairment: Pharyngeal Stripping Wave: 0=Present: complete Pharyngeal Impairment: Pharyngeal Contraction: Did not test Pharyngeal Impairment: Pharyngoesophageal Segment Openin=Partial distention/partial duration: partial obstruction of flow Pharyngeal Impairment: Tongue Base (TB) Retraction: 1=Trace column of contrast/air between TB and posterior PW Pharyngeal Impairment: Pharyngeal Residue: 1=Trace residue within or on pharyngeal structures Pharyngeal Impairment: Esophageal Clearance Upright Position: Did not test Impressions and Recommendations OBJECTIVE: Time-out: performed at 15:00 Evaluation Start: 14:30; Stop: 14:35 Patient Positioning: Standing Viewing Planes: LATERAL ONLY Contrast: MBSImP? Standardized Protocol using commercially prepared, standardized Barium viscosities, including: Varibar? THIN LIQUID (40% w/v, <15 cps) , Varibar? PUDDING (40% w/v, <9601-3954 cps) , 1/2 Shortbread Cookie (1 x1 x.25 ) MBSImP ID: [id number] [facility] Results: Lip closure for intraoral bolus containment could not be assessed due to logistical reasons not related to physiologic impairment. Tongue control during bolus hold maintained a cohesive bolus held between tongue to palate seal. Bolus preparation and mastication resulted in timely and efficient chewing and mashing. Bolus transport/lingual motion was with slowed tongue motion. Oral residue was a trace, lining oral structures. Initiation of the pharyngeal swallow occurred when the bolus head was in the valleculae. Soft palate elevation resulted in no bolus between the soft palate and the pharyngeal wall. Laryngeal elevation was decreased, with partial superior movement of the thyroid cartilage/partial approximation of the arytenoids to the epiglottic petiole. Anterior hyoid excursion demonstrated partial anterior movement. Epiglottic movement resulted in partial inversion. Laryngeal vestibular closure was incomplete, with a narrow column of air/contrast noted within the laryngeal vestibule at the height of the swallow. Pharyngeal stripping wave was present and complete. Pharyngeal contraction could not be determined due to logistical reasons not related to physiologic impairment. Pharyngoesophageal segment opening demonstrated partial distension/partial duration, with partial obstruction of bolus flow. Tongue base retraction allowed a trace column of contrast or air between the retracted tongue base and the posterior pharyngeal wall. Pharyngeal residue was a trace within or on pharyngeal structures. Esophageal clearance in the upright position could not be assessed due to logistical reasons not related to physiologic impairment. Oral Impairment Score: 3 (absence of score, component 1) Pharyngeal Impairment Score: 5 (absence of score, component 13) Esophageal Impairment Score: --- (absence of score, component 17) Laryngeal Penetration and Aspiration: Neither penetration nor aspiration was observed in today's study with Cookie, Pudding-thick. Penetration was observed in today's study. Thin Contrast entered the airway, remained above the vocal folds, and was ejected from the airway. ASSESSMENT: This exam was conducted by the speech pathologist and the radiologist. Patient was standing for lateral view only and fed herself without difficulty. She trialed the following consistencies: thin liquid (via individual cup sips, sequential cup sips), puree, and regular solid. Oral phase was largely unremarkable. Patient demonstrated good tongue control with no premature posterior spillage. Mastication was timely and efficient. Mildly slowed posterior lingual motion, but with overall good recollection. Trace lingual residue cleared on secondary swallows. Pharyngeal swallow trigger initiated as the bolus head reached the valleculae. No evidence of nasopharyngeal reflux. Partial laryngeal elevation with partial epiglottic inversion. There was an episode of flash penetration as patient took rapid sequential sips of thin liquid. A trace amount of contrast entered the airway above the vocal folds, coating the posterior epiglottis, and immediately cleared. No penetration on individual sips. No aspiration seen during this exam. Trace residue on the tongue base and in the valleculae cleared with secondary swallows. Radiologist noted, ?Incidental note is made of grade 1 anterolisthesis C4-C5. There is loss of C5-6 and C6 testis 7 disc heights with mild ventral spondylosis.? Liquid Intake Recommendation: Thin Liquid Intake Strategies: Dietary Recommendations: Regular Medication Administration: Whole with Liquid Please contact the pharmacy regarding appropriate crushable or liquid drug formulations that are available whenever modified delivery is recommended. Compensatory Strategies Recommended: Sitting Upright (90 deg), Small Bites and Sips, Alternate Liquids/Solids, Rate of Ingestion Change Recommendation for Speech Therapy: NA:Typical Evaluation Text Comment: Intake Recommendations: Route: PO Diet Grade: Regular Liquid Consistencies: Thin Post-Study Functional Oral Intake Scale (FOIS): 7- Total oral intake with no restrictions Flash penetration on rapid sips of thin liquid. No evidence of aspiration during this exam. Good oral and pharyngeal clearance. Suggested Referrals: The patient might benefit from a referral to: Gastroenterology Indication for Referral: Continue workup for patient?s c/o vomiting/regurgitation Therapy Recommendations: Swallow in the oral and pharyngeal phase is deemed functional based on observations made during this exam. Further speech therapy and diet modification is not warranted at this time. Please re-refer if patient experiences any changes or worsening of oropharyngeal symptoms. Clinician - Supplemental, Miscellaneous Communication: It is important to note MBSS objective studies are snapshots in time and Patient function might vary with factors such as time of day or concomitant medical conditions. For this reason, the final treatment plan for this patient should rest with their medical care team. Additional recommendations should be considered with the totality of the Patient in mind. Thank for the opportunity to participate in the care of this patient. If you have any questions about the content of this report, please contact the [facility] at [facility]. Education: Education regarding findings from today's study and plans for therapy were provided to Patient only through Verbal Instruction. Understanding was expressed by the Patient only. Safety Advisor Clinician/Clinical Fellow: No Supervisory Statement: N/A Speech Language Pathologist: Diana Jules M.A., CCC-GEAR LAPPER
== END 2024-08-16 14:15 | disposition home or self-care (01) ==
LOC: HO.XRAY 14:14
PROVIDERS: PCP Family Medicine; Visit Provider Internal Medicine Gastroenterology
DX: R13.12 Dysphagia, oropharyngeal phase (principal)
CPT/HCPCS: 74230; 92611

== ENCOUNTER → 2024-08-16 14:22 | Outpatient (BNV) | payer MEDICARE, BC, SELFPAY | PROVIDERS: PCP Family Medicine; Visit Provider Radiology Diagnostic Radiology | DX: R10.13 Epigastric pain (principal) | CPT/HCPCS: 74230 ==

== ENCOUNTER 2024-11-04 07:20 | Outpatient (AMB) | payer MEDICARE, BC, SELFPAY ==
--- OUTSIDE RECORDS SUMMARY | 2024-11-04 07:23 | XMS_ITS | Patient Health Record ---
Author Organization Ashok Ly III, MD Address [address] [place] [address] [place] [address] Care Team Providers Care Marketing Support Assistant Name Role Phone Olegario VASQUEZ, Dario Primary Care Provider Unavailab Ashok Li Unavailable [phone] Allergies No Known Allergies Reason For Referral [...] Problem Status W/U Status Risk Notes Problem 137811285 Obesity (E66.9) Active confirmed Her body mass index remains elevated at 33. We discussed nutrition weight loss and regular exercise today. Problem 575094732 Malignant neopla sm of upper-outer quadrant of right female breast (C50.411) Active confirmed There is no sign of a new primary are of her recurrence. She has completed her adjuvant therapy. Surveillance will continue. Problem 918734407 Gastro-esophagea l reflux disease without esophagitis (K21.9) Active confirmed Her reflux is controlled well with [id number] er medications. Problem 62014873 Essential hypertension (I10) Active confirmed Her blood pressure today was 126/74. This is in the normal range and no change in her regimen as needed. Problem 89492599 Other and unspecified hyperlipidemia (E78.5) Active confirmed I have strongly recommended she reduce the amount of animal fat in her diet and exercise regularly and lose weight. We discussed nutrition length today. Problem 598442913 Osteoarthritis o f multiple joints, unspecified osteoarthritis type (M15.9) Active confirmed She was continued on the current therapy prescribed by the primary care physician. 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 If she has this she will go to the emergency room for EKG. Problem 34657627 Other osteoporos is (M81.8) Active confirmed I [...] MEDICARE NGS [address] [place] [address] [phone] [id number] Ashley Eubanks Self - patient is the insured [facility] [address] [place], [place] [id number] Ashley Eubanks Self - patient is the insured Medical (General) History Medical History History ICD Code breast cancer Stage I 2011 hypertension hyperlipidemia gerd osteoarthritis achalasia premature atrial contractions 2011 fracture right wrist November 13, 2016 anastrozole quit date Surgical History Surgery Date(Month/Year) right modified radical mastectomy 2011 colonoscopy 2006
--- NOTE | 2024-11-04 07:29 | A.OFFVIS_ITS ---
Vital Signs 11/04/24 07:30 Height 5 ft 6 in Weight 198 lb BMI 32.0 BP 131/64 Blood Pressure Location Lt brachial Position Sitting Pulse 79 Pulse Oximetry (%) 98 Oxygen Delivery Method Room Air Intake Visit Reasons: 6 mo f/u FU of dysphagia Intake Note: Patient 6 mo f/u FU of dysphagia and Barium Swallow results Patient cc: swallowing discomfort, denies any other GI issues. Software Developer Manager Required: No Accompanied by: Self / Same As Patient Allergies No Known Allergies Allergy (Verified 11/04/24 07:28) Medication List - Last Reconciled 11/04/24 by Cristopher Grimm MD ascorbic acid (vitamin C) 2 grams PO Q8H cholecalciferol (vitamin D3) 25 mcg PO DAILY famotidine 20 mg PO DAILY flaxseed oil 1,000 mg PO DAILY lisinopril 10 mg PO DAILY methenamine hippurate 1 g PO BID simvastatin 40 mg PO BEDTIME triamcinolone acetonide 0.1% appl topical HPI HPI 6 mo f/u FU of dysphagia: Details: GI clinic visit for this 74-year-old female with history of multifocal ductal carcinoma in situ right breast status post lumpectomy followed by simple mastectomy and sentinel node biopsy and reconstruction with silicone implant. Performed in 2011for follow-up of dysphagia. TODAY'S VISIT: Patient cc: swallowing problems with solid food, denies ny other issues for today. Intermittent dysphagia to solids - none to liquids Sometimes it feels more like an air-bubble. Recurrent problems with dysphagia associated with intake of solids. Notes trouble initiating swallowing and points to the throat as location of dysphagia PAST VISIT Denies coughing spells or regurgitation with swallowing Symptoms improved for a month after EGD and dilation. Has labs done at [facility] on an annual basis Dysphagia improved for a few days after EGD and dilation. Notes recurrent dysphagia to solids atleast once a week. Denies episodes of food impaction) (She was having more frequent dysphagia prior to EGD) Occasional dysphagia 1-3 times a month - usually with dry foods - tries to be very careful Every once in a while the food sticks and feels like a bubble Food ultimately goes down - has learned a few tricks. Makes sure food is moist. Food can get stuck once a month - is able to walk around and dysphagia is relieved. Occasionally has to regurgitate Barium swallow results reviewed with the patient. Being careful with what she eats and taking time to chew her food Denies heartburn. Takes Famotidine daily. Had a few episodes of food getting stuck - a piece of salmon with sauce got stuck for 1/2 an hour. Minor episodes every 1-2 weeks. Noted improvement in dysphagia after EGD. Seems to be coming back slowly. Notes coughing if throat is dry despite drinking water. Patient denies symptoms of heartburn, dysphagia, nausea, vomiting, change in appetite or weight.? Denies recent change in bowel habits, constipation, diarrhea, black stools or rectal bleeding. Patient denies major cardiac or pulmonary problems, loud snoring or sleep apnea Denies problems with anesthesia in the past. Denies being on chronic anticoagulation. Positive family history of colon cancer (brother at age 57 yrs and a month?after IMAGING STUDIES:? 07/03/21 BARIUM SWALLOW SHOWED: Following oral administration of thick barium and effervescent granules, there is normal propagation of bolus from the oral cavity through the pharynx into esophagus without any evidence of obstruction, narrowing or stricture. Minimal retention of barium was seen in the left pyriform sinus on delayed images. No laryngeal penetration or aspiration. On placing patient prone lying and oral administration of thin barium, there is good distention of the esophagus without any intraluminal filling defect or extrinsic compression. There is a nonreducible hiatal hernia with mild gastroesophageal reflux. 11/01/30 US WITH ELASTOGRAPHY SHOWED: 1. Impression: Unremarkable exam 2. Liver elastography:? Adequate sampling. Normal liver stiffness. ENDOSCOPIC STUDIES: 05/19/23 EGD SHOWED: hiatal hernia from 36-40 cms. No esophagitis or Sumner's. A partially obstructing Schatzki's ring at the GE junction. Biopsies were obtained from proximal esophagus for EoE. Esophageal balloon dilation was performed with a 20 mm CRE balloon for 60 seconds. STOMACH: Multiple gastric polyps. 10/10/20? EGD AND COLONOSCOPY SHOWED:? Endoscopy Findings: ESOPHAGUS: Grade 1-2 esophageal varices from 30 to 35 cms.? GE junction at 36 cms, hiatal hernia 36 to 40 cms.? A partially obstructing Schatzki's ring/focal stricture at GEJ.? No esophagitis or Sumner's.? Biopsies were obtained from the stricture. Esophageal balloon dilation was performed with a 20 mm CRE balloon x 60 seconds x 1. STOMACH: Multiple gastric polyps Colonoscopy Findings:? No polyps were detected Moderate to severe diverticulosis seen in the left colon Plan:? Patient has an appointment on 11/09/20 in the GI Clinic with Cristopher Grimm M.D.. Repeat Colonoscopy in 5 years due to a hx of adenomatous colon polyps. Above findings were reviewed with the patient and Gastric polyps and div erticulosis handouts were given in the discharge area BIOPSIES SHOWED: A.? Stomach, polyp, biopsy:? Fundic gland polyp with background mild chronic inactive inflammation; no Helicobacter organisms seen. B.? Esophagus, stricture, biopsy: - Cardiac-type mucosa with moderate chronic inactive inflammation; no intestinal metaplasia seen. - Chronic esophagiti [facility] Medical History (Updated 04/22/24 @ 08:15 by Cristopher Grimm MD) Invasive ductal carcinoma of right breast Dysphagia Family hx of colon cancer requiring screening colonoscopy Hiatal hernia Hypercholesterolemia Hypertension Ductal carcinoma in situ (DCIS) of right breast Surgical History Hx of endoscopy History of left knee replacement (08/04/17) History of total right knee replacement (03/11/17) History of breast reconstruction (07/27/12) History of esophagogastroduodenoscopy (EGD) (06/24/13) History of right mastectomy (10/24/11) History of colonoscopy History of dilation and curettage Family History Mother History of breast cancer, Onset Age: 60 Father Old age Brother Colon cancer Social History Household Members: Spouse Are you a primary resident care supervisor to a significant other at home: No Do you presently have visiting nurse or other home services: No Alcohol intake: current Alcohol intake frequency: does not drink Patient Tobacco Use Status: Never used Tobacco Advance Directives Date on File: 10/10/20 Review of Systems Const All systems reviewed & are unremarkable except as noted in HPI and below Physical Exam Vital Signs: Last Vital Signs Pulse 79 11/04/24 07:30 BP 131/64 11/04/24 07:30 Pulse Ox 98 11/04/24 07:30 Oxygen Delivery Method Room Air 11/04/24 07:30 BMI result Body Mass Index 32.0 Const General: healthy appearing and no acute distress Nutritional Appearance: average body habitus Orientation/consciousness: patient oriented x3 Limitations: no limitations HEENT Head: Yes normal to inspection Ears: hearing grossly normal bilaterally Mouth: Normal oral and palatal mucosa present Eyes Sclerae: sclerae normal Pupils: Equal, round and reactive pupils present Neck Neck: Yes normal visual inspection Chest Chest palpation & inspection: normal inspection of the chest Resp Effort & Inspection: normal respiratory effort Auscultation: clear to auscultation bilaterally Cardio Palpation: normal PMI Rate: regular rate Rhythm: regular rhythm Heart sounds: S1 normal heart sound present, S2 normal heart sound present and no murmurs GI Palpation (GI): Soft to palpation, nontender and No hepatosplenomegaly present Auscultation: normal bowel sounds Rectal Exam - Female: deferred Skin General skin exam: no rashes or lesions noted Neuro General: patient oriented x3, gait normal and moves all extremities Cranial nerves: Yes Equal, round and reactive pupils present Psych Appearance: grossly normal Mental Status: mental status grossly normal Assessment & Plan Assessment & Plan (1) Dysphagia: Comment: 07/2021 Barium swallow showed: No intraluminal filling defect or extrinsic compression. There is a nonreducible hiatal hernia with mild gastroesophageal reflux. Code(s): R13.10 - Dysphagia, unspecified Category: Medical (2) Esophageal varices determined by endoscopy: Code(s): I85.00 - Esophageal varices without bleeding Category: Medical (3) GERD (gastroesophageal reflux disease): Code(s): K21.9 - Gastro-esophageal reflux disease without esophagitis Category: Medical (4) Schatzki's ring: Code(s): K22.2 - Esophageal obstruction Category: Medical (5) Oropharyngeal dysphagia: Code(s): R13.12 - Dysphagia, oropharyngeal phase Category: Medical Plan 73 YF with Hypertension, hypercholesterolemia and DCIS of right breast followed in GI for dysphagia? due to Schatzki's ring and family history of colon cancer EGD AND COLONOSCOPY SHOWED: Endoscopy Findings:? ESOPHAGUS: Grade 1-2 esophageal varices from 30 to 35 cms.? GE junction at 36 cms, hiatal hernia 36 to 40 cms.? A partially obstructing Schatzki's ring/focal stricture at GEJ.? No esophagitis or Sumner's.? Biopsies were obtained from the stricture. Esophageal balloon dilation was performed with a 20 mm CRE balloon x 60 seconds x 1. STOMACH: Multiple gastric polyps 07/2021 barium swallow was performed and findings as noted above 05/2023 EGD showed a Shatzki's ring and balloon dilation was performed Pt was advised to schedule repeat EGD with dilation - Pt would like to schedule in 5-6 months. She was advised to call the GI clinic if she experienced worsening dysphagia to schedule an earlier appt for EGD with dilation 04/22/24 Recurrent problems with dysphagia associated with intake of solids. Notes trouble initiating swallowing and points to the throat as location of dysphagia Denies coughing spells with swallowing Pt advised to schedule a MBS with speech pathology and an EGD with dilation. Advised to chew her food well, eat slowly and take fluids while eating 11/04/24 PT offered to schedule an EGD with dil - prefers to monitor her symptoms for now. May decide to schedule same day appt with her next colon - due in 10/2024 (unsure if she wants to have the colon next year) Follow-up appointment in 6 months Medications: Changed From famotidine 20 mg PO DAILY To famotidine 20 mg PO DAILY 90 tabs 1RF 90 days Coding Level of Care Code Est Pt Level 3 (48817) Diagnoses Dysphagia R13.10 Esophageal varices determined by endoscopy I85.00 GERD (gastroesophageal reflux disease) K21.9 Schatzki's ring K22.2 Oropharyngeal dysphagia R13.12 Time Spent (min) 18
[2024-11-04 07:30] VITALS: BP 131/64; PULSE 79; O2SAT 98; BMI 32.0
== END 2024-11-04 07:52 | disposition home or self-care (01) ==
LOC: HO.HGI 07:21
PROVIDERS: PCP Family Medicine; Visit Provider Internal Medicine Gastroenterology
DX: R13.10 Dysphagia, unspecified (principal); I85.00 Esophageal varices without bleeding; K21.9 Gastro-esophageal reflux disease without esophagitis; K22.2 Esophageal obstruction; R13.12 Dysphagia, oropharyngeal phase
CPT/HCPCS: 99213

== ENCOUNTER → 2024-11-04 07:20 | Outpatient (BNVA) | payer MEDICARE, BC, SELFPAY | PROVIDERS: PCP Family Medicine; Visit Provider Internal Medicine Gastroenterology | DX: R13.12 Dysphagia, oropharyngeal phase (principal); I85.00 Esophageal varices without bleeding; K21.9 Gastro-esophageal reflux disease without esophagitis; K22.2 Esophageal obstruction | CPT/HCPCS: 99212 ==

== ENCOUNTER 2025-03-14 09:22 | Day surgery (SDC) | payer MEDICARE, BC, SELFPAY ==
--- OUTSIDE RECORDS SUMMARY | 2025-02-22 13:50 | XMS_ITS | Encounter Summary ---
Author Organization [facility] Address [address] [facility] [address] [place] [address] Phone Care Team Providers Care Director Of Capital Giving Name Role Phone Dario Melvin MD Primary Care Provider Encounter Details Date Type Department Care Team (Late st Contact Info) Description 04/24/2017 Transcribe Orders [facility] Laboratory [address] [place] [address] Dario Melvin MD [address] [place] [address] [place] [address] Anemia, unspecified type (Primary Dx) Social History Tobacco Use Types Packs/Day Years Used Date Smoking Tobacco: Never Smokeless Tobacco: Never Alcohol Use Standard Drinks/Week Comments Yes 0 (1 standard drink = 0.6 oz pur e alcohol) once every other month Comments Unknown Sex and Gender Information Value Date Recorded Sex Assigned at Not on file Legal Sex Female 10:00 PM EDT Gender Identity Not on file Sexual Orientation Not on file documented as of this encounter Plan of Treatment Not on file documented as of this encounter Procedures Procedure Name Priority Date/Time Associated Diagnosis Comments CBC Routine 04/24/2017 7:41 AM EST Anemia, unspecified type documented in this encounter Results * CBC (04/24/2017 7:41 AM EST) WBC 4.33 3.40 - 11.20 K/uL [facility] RBC 4.69 3.80 - 4.80 M/uL [facility] HGB 14.6 12.0 - 15.0 g/dL [facility] HCT 44.1 36.0 - 46.0 % [facility] PLT 335 130 - 400 K/uL [facility] MCV 94.0 79.0 - 98.0 fL [facility] MCH 31.1 27.0 - 34.8 pg [facility] MCHC 33.1 31.5 - 36.0 g/dL [facility] RDW 13.3 10.8 - 14.6 % [facility] MPV 10.8 9.4 - 12.4 fl [facility] NRBC 0.00 /100 WBCs [facility] ABSOLUTE NRBC 0.00 K/uL [facility] Blood 04/24/2017 7:41 AM EST 04/24/2017 7:44 AM EST us Dario Melvin MD LAB BLOOD ORDERABLES Edited Result - Final Performing Organization Address City/State/[facility] Co de Phone Number [address] [address] documented in this encounter Visit Diagnoses Diagnosis Anemia, unspecified type- Primary documented in this encounter Care Teams Director Of Capital Giving Relationship Specialty Start Date End Date Dario Melvin MD [address] [place] [address] [place] [address] PCP - General 02/20/17 documented as of this encounter Additional Source Comments The information contained in this document represents components of the legal health record. It is not the complete legal health record.[facility]
--- OUTSIDE RECORDS SUMMARY | 2025-02-22 13:50 | XMS_ITS | Encounter Summary ---
Author Organization [facility] Address [address] [address] Phone Care Team Providers Care House Coordinator Name Role Phone Dario Melvin MD Primary Care Provider +1- [phone] Encounter Details Date Type Department Care Team (Late st Contact Info) Description 04/06/2024 Transcribe Orders [facility] Specimen Processing [address] [place] [address] Dario Melvin MD [address] [place] [address] Dr [place] [facility] [place] [address] Hypertension, unspecified type (Primary Dx) Social History Tobacco Use Types Packs/Day Years Used Date Smoking Tobacco: Never Smokeless Tobacco: Never Alcohol Use Standard Drinks/Week Comments Yes 0 (1 standard drink = 0.6 oz pur e alcohol) once every other month Education Answer Date Recorded Are you interested in more education? Not on nabeel e 08/30/2022 Are you concerned about learning? Not on file 08/30/2022 No 08/30/2022 No 08/30/2022 Digital Access Answer Date Recorded No 09/28/2022 No 09/28/2022 Reliable internet access at home? Not on file 09/28/2022 Device with a working camera? Not on file Comments Unknown Sex and Gender Information Value Date Recorded Sex Assigned at Not on file Legal Sex Female 10:00 PM EDT Gender Identity Not on file Sexual Orientation Not on file documented as of this encounter Plan of Treatment Not on file documented as of this encounter Visit Diagnoses Diagnosis Hypertension, unspecified type- Primary documented in this encounter Care Teams House Coordinator Relationship Specialty Start Date End Date Dario Melvin MD [address] [place] [address] [place] [address] PCP - General 02/20/17 documented as of this encounter Additional Source Comments The information contained in this document represents components of the legal health record. It is not the complete legal health record.[facility]
--- OUTSIDE RECORDS SUMMARY | 2025-02-22 13:50 | XMS_ITS | Encounter Summary ---
Author Organization [facility] Address [address] [facility] [address] [place] [address] Phone Care Team Providers Care Piano Assembler Name Role Phone Dario Melvin MD Primary Care Provider +1- [phone] Encounter Details Date Type Department Care Team (Late st Contact Info) Description 03/11/2017 Procedure Pass [place] Admitting Dept - Virtual Department 30 [place] [address] Social History Tobacco Use Types Packs/Day Years [...] documented as of this encounter Visit Diagnoses Not on filedocumented in this encounter Care Teams Piano Assembler Relationship Specialty Start Date End Date Dario Melvin MD [address] [place] [address] [place] [address] PCP - General 02/20/17 documented as of this encounter Additional Source Comments The information contained in this document represents components of the legal health record. It is not the complete legal health record.[facility]
--- OUTSIDE RECORDS SUMMARY | 2025-02-22 13:50 | XMS_ITS | Encounter Summary ---
Author Organization [facility] Address [address] [facility] [address] [place] [address] Phone Care Team Providers Care Senior Administrative Services Officer Name Role Phone Dario Melvin MD Primary Care Provider +1- [phone] Encounter Details Date Type Department Care Team (Late st Contact Info) Description 08/04/2017 Procedure Pass [place] Admitting Dept - Virtual Department 30 [place] [address] Social History Tobacco Use Types Packs/Day Years [...] on filedocumented in this encounter Care Teams Senior Administrative Services Officer Relationship Specialty Start Date End Date Dario Melvin MD [address] [place] [address] [place] [address] PCP - General 02/20/17 documented as of this encounter Additional Source Comments The information contained in this document represents components of the legal health record. It is not the complete legal health record.[facility]
--- OUTSIDE RECORDS SUMMARY | 2025-02-22 13:50 | XMS_ITS | Patient Health Record ---
Author Organization Ashok Ly III, MD Address [address] [place] [address] [place] [address] Care Team Providers Care Combat Engineer Name Role Phone Olegario VASQUEZ, Dario Primary Care Provider Unavailab Dr. Ashok Li III Unavailable Allergies No Known Allergies Reason For Referral [...] Problem Status W/U Status Risk Notes Problem 283944856 Obesity (E66.9) Active confirmed Her body mass index remains elevated at 33. We discussed nutrition weight loss and regular exercise today. Problem 302429442 Malignant neopla sm of upper-outer quadrant of right female breast (C50.411) Active confirmed There is no sign of a new primary are of her recurrence. She has completed her adjuvant therapy. Surveillance will continue. Problem 462570314 Gastro-esophagea l reflux disease without esophagitis (K21.9) Active confirmed Her reflux is controlled well with wbsb-meo-dlorm er medications. Problem 05982148 Essential hypertension (I10) Active confirmed Her blood pressure today was 126/74. This is in the normal range and no change in her regimen as needed. Problem 15927009 Other and unspecified hyperlipidemia (E78.5) Active confirmed I have strongly recommended she reduce the amount of animal fat in her diet and exercise regularly and lose weight. We discussed nutrition length today. Problem 939385017 Osteoarthritis o f multiple joints, unspecified osteoarthritis type (M15.9) Active confirmed She was continued on the current therapy prescribed by the primary care physician. 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 If she has this she will go to the emergency room for EKG. Problem 90973007 Other osteoporos is (M81.8) Active confirmed I [...] End Date MEDICARE NGS [address] [place] [address] [phone] [id number] Ashley Eubanks Self - patient is the insured [facility] [address] [place], [place] [id number] Ashley Eubanks Self - patient is the insured Medical (General) History Medical History History ICD Code breast cancer Stage I 2011 hypertension hyperlipidemia gerd osteoarthritis achalasia premature atrial contractions 2011 fracture right wrist November 13, 2016 anastrozole quit date Surgical History Surgery Date(Month/Year) right modified radical mastectomy 2011 colonoscopy 2006
--- OUTSIDE RECORDS SUMMARY | 2025-02-22 13:50 | XMS_ITS | Encounter Summary ---
Author Organization [facility] Address [address] [place] [address] Phone Care Team Providers Care Brand Designer Name Role Phone Dario Melvin MD Primary Care Provider [phone]- [phone] Encounter Details Date Type Department Care Team (Late st Contact Info) Description 05/29/2017 Procedure Pass [facility], [address] [address] Social History Tobacco Use Types Packs/Day Years [...] on file documented as of this encounter Last Filed Vital Signs Vital Sign Reading Time Taken Comments Blood Pressure - - Pulse - - Temperature - - Respiratory Rate - - Oxygen Saturation - - Inhaled Oxygen Concentration - - Weight 90.7 kg (200 lb) 05/30/2017 1:36 PM EST Height 167.6 cm (5' 6 ) 05/30/2017 1:36 PM EST Body Mass Index 32.28 05/30/2017 1:36 PM EST documented in this encounter Plan of Treatment Not on file documented as of this encounter Visit Diagnoses Not on filedocumented in this encounter Care Teams Brand Designer Relationship Specialty Start Date End Date Dario Melvin MD [address] [place] [address] [place] [address] PCP - General 02/20/17 documented as of this encounter Additional Source Comments The information contained in this document represents components of the legal health record. It is not the complete legal health record.[facility]
--- OUTSIDE RECORDS SUMMARY | 2025-02-22 13:50 | XMS_ITS | Clinical Summary ---
Author Organization [facility] Address [address] [address] Phone Care Team Providers Care Thread Dresser Name Role Phone Dario Melvin MD Primary Care Provider Allergies No known active allergies Medications lisinopril (PRINIVIL,ZESTR IL) 10 MG tablet Take 10 mg by mouth daily. Active simvastatin (ZOCOR) 40 MG tablet Take 40 mg by mouth nightly. Active ASCORBATE CALCIUM (VITAMIN C ORAL) Take by mouth. Active cholecalciferol (VITAMIN D3) 1,000 unit tablet Take 1,000 Units by mouth daily. Active MULTIVITAMIN ORAL Take by mouth. Active COQ10, LIPOSOMAL UBIQUINOL, ORAL Take 50 g by mouth daily. Active acetaminophen (TYLENOL) 500 MG tablet Take 500 mg by mouth every 4 (four) hours as needed for pain (specific location in comments). Active Active Problems Problem Noted Date Diagnosed Date Primary osteoarthritis of left knee 08/04/2017 Primary osteoarthritis of right knee 03/11/2017 Immunizations Immunization Administration Dates Next Due Influenza, Unspecified Formulation 01/30/2017 Family History Medical History Relation Comments Cancer Brother Cancer Mother Relation Status Comments Brother Father Mother Social History Tobacco Use Types Packs/Day Years [...] on file Sexual Orientation Not on file Last Filed Vital Signs Vital Sign Reading Time Taken Comments Blood Pressure 120/90 08/22/2017 1:16 PM EDT Pulse 81 08/22/2017 1:16 PM EDT Temperature 36.7 C (98.1 F) 08/22/2017 1:16 PM EDT Respiratory Rate 12 08/22/2017 1:16 PM EDT Oxygen Saturation 95% 08/22/2017 1:16 PM EDT Inhaled Oxygen Concentration - - Weight 89.4 kg (197 lb) 09/26/2017 8:05 AM EDT Height 167.6 cm (5' 6 ) 09/26/2017 8:05 AM EDT Body Mass Index 31.8 09/26/2017 8:05 AM EDT Plan of Treatment Health Maintenance Due Date Last Done Comments Adult Td,Tdap Booster 1951 BLOOD PRESSURE 1951 DEPRESSION SCREENING 1963 HEPATITIS C SCREENING 1969 MAMMOGRAM 1991 COLOGUARD 1996 COLONOSCOPY 1996 COLORECTAL CANCER SCREENING 1996 FIT TEST 1996 FOBT 1996 SIGMOIDOSCOPY 1996 VIRTUAL COLONOSCOPY 1996 ZOSTER VACCINES (1 of 2) 2001 OSTEOPOROSIS SCREENING INITIAL (ONE-TIME) 2016 INFLUENZA VACCINE (#1) 2024 , 01/29/2019, 01/20/2018, Additional history exists COVID-19 VACCINE (2 - 2024- season) 2025 07/23/2020 CREATININE LEVEL 10/22/2025 10/22/2024, 07/2023, 09/25/2023, Additional history exists POTASSIUM LEVEL 10/22/2025 10/22/2024, 12/0 07/2023, 09/25/2023, Additional history exists RSV VACCINE (1 - 1-dose 75+ series) 2026 LIPID PANEL 10/22/2029 10/22/2024 SMOKING STATUS SCREENING (Once After 26 Yrs) Completed 07/29/2018 PNEUMOCOCCAL VACCINES (50+ years) Completed 05/09/2020, 05/07/2019 HEPATITIS A VACCINES Aged Out No long er eligible based on patient's age to complete this topic HIB VACCINES Aged Out No longer eligi ble based on patient's age to complete this topic MENINGOCOCCAL VACCINES (ACWY) Aged Out No longer eligible based on patient's age to complete this topic MENINGOCOCCAL VACCINES (B) Aged Out N o longer eligible based on patient's age to complete this topic Medical Devices Implanted Type Area Primary Clinician Device Identifier Shelf Expiration Date Model / Serial / Lot Breast-Right Right Breast Cement Bone 40gr Summit [employer]v - [id number] Implanted:Qty: 1 on 03/11/2017 by Cachorro Fuentes MD at [facility] Right: Knee [employer] 09/01/2018 [id number] / / [id number] Cement Bone 40gr Summit Ghv - [id number] Implanted:Qty: 1 on 03/11/2017 by Cachorro Fuentes MD at [facility] Right: Knee [employer] 09/01/2018 [id number] / / [id number] Implant Knee 65.0mm Femoral Component Interlok Vanguard Open Box Right Ea Knee 02 - [id number] Implanted:Qty: 1 on 03/11/2017 by Cachorro Fuentes MD at [facility] Right: Knee [employer] 12/02/2023 [id number] / / [id number] Plate Bone 71mm Knee Tibial Tray I Beam Locking Bar Summit Chrome Maxim Ea Knee 03a - [id number] Implanted:Qty: 1 on 03/11/2017 by Cachorro Fuentes MD at [facility] Right: Knee [employer] 10/16/2026 [id number] / / [id number] Series A Pat W/Wr Std 34x8.5 1 Peg Knee - [id number] Implanted:Qty: 1 on 03/11/2017 by Cachorro Fuentes MD at [facility] Right: Knee [employer] 10/24/2021 [id number] / / [id number] Knee Tibial Bearing E1 Vanguard Ps 71/75 X 14 - [id number] Implanted:Qty: 1 on 03/11/2017 by Cachorro Fuentes MD at [facility] Right: Knee [employer] 11/12/2021 [id number] / / [id number] Cement Bone 40gr Summit Ghv - [id number] Implanted:Qty: 1 on 08/04/2017 by Cachorro Fuentes MD at [facility] Left: Knee [employer]ORE 11/01/2018 [id number] / / [id number] Plate Bone 71mm Knee Tibial Tray I Beam Locking Bar Summit Chrome Maxim Ea Knee 03a - [id number] Implanted:Qty: 1 on 08/04/2017 by Cachorro Fuentes MD at [facility] Left: Knee [employer] 03/02/2027 [id number] / / [id number] Implant Knee 65.0mm Femoral Component Interlok Vanguard Open Box Left Ea Knee 02 - [id number] Implanted:Qty: 1 on 08/04/2017 by Cachorro Fuentes MD at [facility] Left: Knee [employer] 06/10/2027 [id number] / / [id number] Series A Pat W/Wr Std 34x8.5 1 Peg Knee 06 - [id number] Implanted:Qty: 1 on 08/04/2017 by Cachorro Fuentes MD at [facility] Left: Knee [employer] 04/11/2022 [id number] / / [id number] Knee Tibial Bearing E1 Vanguard Ps 71/75 X 14 - [id number] Implanted:Qty: 1 on 08/04/2017 by Cachorro Fuentes MD at [facility] Left: Knee [employer] 04/18/2022 [id number] / / [id number] Cement Bone 40gr Summit Ghv - [id number] Implanted:Qty: 1 on 08/04/2017 by Cachorro Fuentes MD at [facility] Left: Knee [employer] 03/04/2019 [id number] / / [id number] Procedures Procedure Name Priority Date/Time Associated Diagnosis Comments LIPID PANEL Routine 10/22/2024 8:57 AM EDT Leukopenia, unspecified type Hypertension, unspecified type High cholesterol ELECTROLYTES Routine 10/22/2024 8:56 AM EDT Leukopenia, unspecified type Hypertension, unspecified type High cholesterol CREATININE/EGFR Routine 10/22/2024 8:56 AM EDT Leukopenia, unspecified type Hypertension, unspecified type High cholesterol from Last 3 Months or Most Recently Relevant to Health Maintenance Results * (ABNORMAL) Lipid panel (10/22/2024 8:57 AM EDT) HDL 72 mg/dL [facility] Comment: Interpretation <40 mg/dL: Low HDL cholesterol (major risk factor for CHD) Greater than or equal to 60 mg/dL: High HDL cholesterol ( negative risk factor for CHD) HDL - cholesterol is affected by a number of factors, e.g. smoking, excerise, hormones, sex and age. CHOLESTEROL 166 0 - 240 mg/dL [facility] TRIGLYCERIDES 96 30 - 160 mg/dL [facility] LDL 75 50 - 129 mg/dL [facility] Comment: LDL levels in terms of risk for coronary heart disease: <100 mg/dL: Optimal 100-129 mg/dL: Near or above optimal 130-159 mg/dL: Borderline high 160-189 mg/dL: High >190 mg/dL: Very High CARDIAC RISK RATIO 2.3(L) 3.3 - 4.4 [facility] Blood 10/22/2024 8:57 AM EDT 10/22/2024 8:59 AM EDT us Dario Melvin MD LAB BLOOD ORDERABLES Final Result [facility] [address] [place] [address] * Creatinine/eGFR (10/22/2024 8:56 AM EDT) CREATININE 0.70 0.5 - 1.5 mg/dL [facility] EGFR 91 >59 mL/min/1.7 3m2 [facility] Comment:Estimated glomerular filtration rate calculated using the CKD-EPI refit equation. Blood 10/22/2024 8:56 AM EDT 10/22/2024 8:59 AM EDT Dario Melvin MD LAB BLOOD ORDERABLES Final Result [address] [address] * Electrolytes (10/22/2024 8:56 AM EDT) SODIUM 141 133 - 146 mmol/L [facility] POTASSIUM 4.8 3.3 - 5.1 mmol/L [facility] CHLORIDE 107 96 - 108 mmol/L [facility] CO2 26 21 - 35 mmol/L [facility] ANION GAP 13 10 - 20 mmol/L [facility] Blood 10/22/2024 8:56 AM EDT 10/22/2024 8:59 AM EDT Dario Melvin MD LAB BLOOD ORDERABLES Final Result Performing Organization Address City/[facility]/ZIP Co de Phone Number [address] [address] from Last 3 Months or Most Recently Relevant to Health Maintenance Insurance MED[place] [id number] [facility] MEDICARE PART A & B [facility] MEDICARE PART A & B [facility] Address[facility] [id number] [place] [address] MEDICARE PART A & B [facility] MEDICARE [facility] A & B [facility] MEDICARE PART A & B [facility] MEDICARE PART A & B [facility] MEDICARE PART A & B [facility] Address: [facility] [address] [place] [address] MEDICARE PART A & B [facility] Advance Directives For more information, please contact: [phone] (9AM - 5PM [facility], Friday-Friday) Documents on File Type Date Recorded Patient Computerized Table Cutter Expl anation Healthcare Proxy 03/14/2017 1:01 PM PROXY * Full Code (Presumed) (Latest Code Status on File) Date Activated Date Inactivated Comments 08/04/2017 10:50 AM 08/06/2017 2:55 PM * Full Code (Presumed) Date Activated Date Inactivated Comments 08/04/2017 6:23 AM 08/04/2017 10:50 AM * Full Code (Presumed) Date Activated Date Inactivated Comments 03/11/2017 10:57 AM 03/13/2017 3:03 PM Care Teams Thread Dresser Relationship Specialty Start Date End Date Dario Melvin MD [address] [place] [address] [place] [address] PCP - General 02/20/17 Additional Source Comments The information contained in this document represents components of the legal health record. It is not the complete legal health record.[facility]
--- OUTSIDE RECORDS SUMMARY | 2025-02-22 13:52 | XMS_ITS | Encounter Summary ---
Author Organization [facility] Address [address] [place] [address] Phone Care Team Providers Care Hairspring Truing Inspector Name Role Phone Dario Melvin MD Primary Care Provider +1- [phone] Encounter Details Date Type Department Care Team (Late st Contact Info) Description 08/13/2017 Ancillary Orders [facility] Orthopedics & Sports Medicine [address] [place] [address] Vannesa Groves PA-C [address] [place] [address] Orthopedics & Sports Medicine, [facility] [place] [address] [email or web address] Social History Tobacco Use Types Packs/Day Years [...] on filedocumented in this encounter Care Teams Hairspring Truing Inspector Relationship Specialty Start Date End Date Dario Melvin MD [address] [place] [address] [place] [address] PCP - General 02/20/17 documented as of this encounter Additional Source Comments The information contained in this document represents components of the legal health record. It is not the complete legal health record.[facility]
--- OUTSIDE RECORDS SUMMARY | 2025-02-22 13:52 | XMS_ITS | Encounter Summary ---
Author Organization [facility] Address [address] [place] [address] Phone Care Team Providers Care Wharf Hand Name Role Phone Dario Melvin MD Primary Care Provider +1- [phone] Encounter Details Date Type Department Care Team (Latest Contact Info) Description 02/22/2017 Ancillary Orders [facility] Orthopedics & Sports Medicine [address] [place] [address] Vannesa Groves PA-C [address] [place] [address] Orthopedics & Sports Medicine, [facility] [place] [address] [email or web address] post right knee replacement Social History Tobacco Use Types Packs/Day Years Used Date Smoking Tobacco: Never Assessed Comments Unknown Sex and Gender Information Value Date Recorded Sex Assigned at Not on file Legal Sex Female 10:00 PM EDT Gender Identity Not on file Sexual Orientation Not on file documented as of this encounter Plan of Treatment Not on file documented as of this encounter Results * XR KNEE 3 VIEW (RIGHT) (03/26/2017 10:39 AM EST) Narrative YajairaShelly sutton - 03/26/2017 10:39 AM EST This image report has been auto-finalized and has not been read by a Radiologist. Interpretation has been included in the provider encounter note for this date of service. us Vannesa Groves PA-C IMG XR LOWER EXTREMITY F inal Result documented in this encounter Visit Diagnoses Diagnosis Status post right knee replacement Status post right knee replacement documented in this encounter Care Teams Wharf Hand Relationship Specialty Start Date End Date Dario Melvin MD [address] [place] [address] [place] [address] PCP - General 02/20/17 documented as of this encounter Additional Source Comments The information contained in this document represents components of the legal health record. It is not the complete legal health record.[facility]
--- OUTSIDE RECORDS SUMMARY | 2025-02-22 13:52 | XMS_ITS | Encounter Summary ---
Author Organization [facility] Address [address] [place] [id number] Phone Care Team Providers Care Primary Care Pediatrician Name Role Phone Dario Melvin MD Primary Care Provider [phone] Encounter Details Date Type Department Care Team (Late st Contact Info) Description 08/13/2017 Ancillary Orders [address] [address] Vannesa Groves PA-C [address] [place] [address] Orthopedics & Sports Medicine, [place] [address] [email or web address] Left knee pain, unspecified chronicity Social History Tobacco Use Types Packs/Day Years [...] encounter Results * XR KNEE 3 VIEW (LEFT) (08/15/2017 9:07 AM EDT) Narrative Shelly Harrison - 08/15/2017 9:08 AM EDT This image report has been auto-finalized and has not been read by a Radiologist. Interpretation has been included in the provider encounter note for this date of service. Vannesa Groves PA-C IMG XR LOWER EXTREMITY F inal Result documented in this encounter Visit Diagnoses Diagnosis Left knee pain, unspecified chronicity Left knee pain, unspecified chronicity documented in this encounter Care Teams Primary Care Pediatrician Relationship Specialty Start Date End Date Dario Melvin MD [address] [place] [address] [place] [address] PCP - General 02/20/17 documented as of this encounter Additional Source Comments The information contained in this document represents components of the legal health record. It is not the complete legal health record.[facility]
--- NOTE | 2025-03-09 13:17 | HO.ANESPROP2 ---
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) Past Medical History Medical History (Updated 02/03/25 @ 14:00 by KATHY King) Bladder prolapse, female, acquired History of breast cancer Invasive ductal carcinoma of right breast Dysphagia Family hx of colon cancer requiring screening colonoscopy Hiatal hernia Hypercholesterolemia Hypertension Ductal carcinoma in situ (DCIS) of right breast Family History Family History (Updated 02/03/25 @ 10:10 by Kareen Story MA) Mother History of breast cancer, Onset Age: 60 Father Old age Brother Colon cancer Family history of problems with anesthesia: No Surgical History Surgical History (Updated 02/02/25 @ 15:45 by Swetha Jaimes) Hx of endoscopy History of left knee replacement (08/04/17) History of total right knee replacement (03/11/17) History of breast reconstruction (07/27/12) History of esophagogastroduodenoscopy (EGD) (06/24/13) History of right mastectomy (10/24/11) History of colonoscopy (~10/10/20) History of dilation and curettage History of Problems with Anesthesia: No Social History Social History Household Members: Spouse Housing: House Are you a primary child care provider to a significant other at home: No Do you presently have visiting nurse or other home services: No Alcohol intake: current Alcohol intake frequency: does not drink Patient Tobacco Use Status: Never used Tobacco e-Cigarette/Vaping Use: Never Used Advance Directives Date on File: 10/10/20 service: No Current occupational status: retired Cognitive needs: No Hearing needs: No Vision needs: Yes (Rx glasses) Meds Allergies Allergy/AdvReac Type Severity Reaction Status Date / Time sulfamethoxazole (From Allergy Severe skin Verified 02/03/25 10:05 Bactrim) irritation trimethoprim (From Bactrim) Allergy Severe skin Verified 02/03/25 10:05 irritation Home Medications ?Medication ?Instructions ?Recorded ?Confirmed ?Last Taken ?Type ascorbic acid (vitamin C) 1,000 mg 2 g PO Q8H 08/15/22 02/03/25 05/18/23 History capsule flaxseed oil 1,000 mg capsule 1,000 mg PO DAILY 08/15/22 02/03/25 05/18/23 History methenamine hippurate 1 gram tablet 1 g PO BID 04/22/24 02/03/25 Unknown History cholecalciferol (vitamin D3) 50 50 mcg PO DAILY 02/03/25 02/03/25 Unknown History mcg (2,000 unit) capsule cranberry 500 mg capsule 500 mg PO DAILY 02/03/25 02/03/25 Unknown History multivitamin 1 tab PO DAILY 02/03/25 02/03/25 Unknown History Assessment and Plan Assessment Anesthesia Assessment: Chart Reviewed Final Anesthetic Review Family History of Problems with Anesthesia: No History of Problems with Anesthesia: No
[2025-03-10 09:45] VITALS: BMI 32.3
--- NOTE | 2025-03-14 08:36 | MHC.SHP ---
Pre-Procedural Eval Section A - 24 Hr Update-Section A only Date of Service: 03/14/25 The patient is an INPATIENT: No The patient has been examined within 24 hours of the surgical procedure. The History & Physical has been completed within 30 days and I have reviewed it.: No Section B - Complete if H&P > 30 days Chief Complaint: Esophageal varices w/o bleeding,gerd,dysphagia Details of Present Illness: Dysphagia Relevant Family History (Specify if Yes): Yes Relevant Social History: None Present Medications: see Short Stay Collaborative assessment Medical History: Significant History (Ductal carcinoma in situ (DCIS) of right breast Dysphagia Family hx of colon cancer requiring screening colonoscopy Hiatal hernia Hypercholesterolemia Hypertension) History of Previous Operations: Relevant previous surgery/procedure and date(s) (History of breast reconstruction (07/27/12) History of colonoscopy History of dilation and curettage History of esophagogastroduodenoscopy (EGD) (06/24/13) History of left knee replacement (08/04/17) History of right mastectomy (10/24/11) History of total right knee replacement (03/11/17)) Allergies: Allergies Allergy/AdvReac Type Severity Reaction Status Date / Time sulfamethoxazole (From Allergy Severe skin Verified 02/03/25 10:05 Bactrim) irritation trimethoprim (From Bactrim) Allergy Severe skin Verified 02/03/25 10:05 irritation Review of Systems Sugical H&P ROS: Negative: Constitution, Cardiovascular and Respiratory and Yes, Specify: Gastrointestinal (dysphagia) Exam Surgical H&P Exam: Normal: Heart, Normal: Lungs, Normal: Extremities and Normal: Abdomen Plan Diagnosis/Plan: Unchanged I have reviewed the history and physical and performed a pertinent physical examination on my patient. No changes have occurred unless specified. Time Spent With Patient Time: Total time managing care of this patient today ____ minutes.
[2025-03-14 10:33] VITALS: BMI 32.0
[2025-03-14 10:38] VITALS: BP 145/78; PULSE 85; RESP 16; TEMP 36.4; O2SAT 98
[2025-03-14] MEDS: Lactated Ringers 1,000 ML 100 ML IVCONT (10:54)
--- NOTE | 2025-03-14 11:05 | HO.ANESPROP2 ---
HPI - Anesthesia Eval Consult details Narrative: 73yo F for Upper Endoscopy PMF Active Problems Active Problems: All Active Problems (Updated 03/10/25 @ 09:41 by Mimi Hood RN) Oropharyngeal dysphagia (Acute) Schatzki's ring (Acute) GERD (gastroesophageal reflux disease) (Acute) Invasive ductal carcinoma of right breast (Acute) Esophageal varices determined by endoscopy (Acute) Bladder prolapse, female, acquired (Acute) History of breast cancer (Acute) Hypercholesterolemia (Acute) Hypertension (Acute) Dysphagia (Acute) Family hx of colon cancer requiring screening colonoscopy (Acute) Ductal carcinoma in situ (DCIS) of right breast (Acute) Past Medical History Medical History (Updated 03/10/25 @ 09:41 by Mimi Hood RN) Bladder prolapse, female, acquired History of breast cancer Dysphagia Family hx of colon cancer requiring screening colonoscopy Hiatal hernia Hypercholesterolemia Hypertension Ductal carcinoma in situ (DCIS) of right breast Family History Family History (Updated 02/03/25 @ 10:10 by Kareen Story MA) Mother History of breast cancer, Onset Age: 60 Father Old age Brother Colon cancer Family history of problems with anesthesia: No Surgical History Surgical History (Updated 03/10/25 @ 09:41 by Mimi Hood RN) Hx of endoscopy History of left knee replacement (08/04/17) History of total right knee replacement (03/11/17) History of breast reconstruction (07/27/12) History of esophagogastroduodenoscopy (EGD) (06/24/13) History of right mastectomy (10/24/11) History of colonoscopy (~10/10/20) History of dilation and curettage History of Problems with Anesthesia: No Social History Social History Household Members: Spouse Housing: House Are you a primary daycare teacher to a significant other at home: No Do you presently have visiting nurse or other home services: No Alcohol intake: current Alcohol intake frequency: former alcohol drinker Patient Tobacco Use Status: Never used Tobacco e-Cigarette/Vaping Use: Never Used Use of substances other than those prescribed or required for medical reasons: No Are you DNR?: No Advance Directives: Yes Advance Directives on File: Yes Advance Directives Date on File: 10/10/20 Patient : No : No service: No Current occupational status: retired Cognitive needs: No Hearing needs: No Vision needs: Yes (Rx glasses) Meds Allergies Allergy/AdvReac Type Severity Reaction Status Date / Time sulfamethoxazole (From Allergy Severe Rash Verified 03/14/25 10:28 Bactrim) trimethoprim (From Bactrim) Allergy Severe Rash Verified 03/14/25 10:28 Active Medications: Current Medications Lactated Ringer's (Lr) 1,000 mls @ 100 mls/hr IVCONT .Q10H JESSICA Last Admin: 03/14/25 10:54 Dose: 100 mls/hr Home Medications ?Medication ?Instructions ?Recorded ?Confirmed ?Last Taken ?Type ascorbic acid (vitamin C) 1,000 mg 2 g PO Q8H 08/15/22 03/10/25 05/18/23 History capsule flaxseed oil 1,000 mg capsule 1,000 mg PO DAILY 08/15/22 03/10/25 05/18/23 History methenamine hippurate 1 gram tablet 1 g PO BID 04/22/24 03/10/25 Unknown History cholecalciferol (vitamin D3) 50 50 mcg PO DAILY 02/03/25 03/10/25 Unknown History mcg (2,000 unit) capsule cranberry 500 mg capsule 500 mg PO DAILY 02/03/25 03/10/25 Unknown History multivitamin 1 tab PO DAILY 02/03/25 03/10/25 Unknown History Exam Height,Weight and Vital Signs: Height 5 ft 6 in Weight 198 lb 3.129 oz Last Vital Signs Temp 97.6 F 03/14/25 10:38 Pulse 85 03/14/25 10:38 Resp 16 03/14/25 10:38 BP 145/78 H 03/14/25 10:38 Pulse Ox 98 03/14/25 10:38 O2 Del Method Room Air 03/14/25 10:38 Narrative Narrative: ECHO 03/2023 Conclusions: - The left ventricular systolic function is normal. The calculated ejection fraction is 70% by biplane method. - There is mild calcification of the aortic valve. - There is trace mitral valve regurgitation. - There is mild tricuspid valve regurgitation. - Moderate plaque is seen in the sino tubular ridge. No signif change c/w 2019 Airway Mallampati Class: II TM Dist: >3cm Neck ROM: Full Heart: rrr Lungs: cta Assessment and Plan Assessment Anesthesia Assessment: Anesthesia Plan Discussed and Chart Reviewed Final Anesthetic Review Family History of Problems with Anesthesia: No History of Problems with Anesthesia: No NPO: Yes ASA Class: II Final Preanesthetic Review: No Changes in Pt Med Stat, Meds/Allgs Chart Reviewed and Consent Obtained/Reviewed Patient Risk: Intermediate Procedure Risk: Intermediate Anesthetic Plan Anesthetic Plan: MAC: Disposition: Standard PACU
--- NOTE | 2025-03-14 11:45 | W.PM.OPN ---
Operative Note Operative Note Date of Service: 03/14/25 Narrative: FLEXIBLE TRANSORAL UPPER GASTROINTESTINAL ENDOSCOPY WITH ESOPHAGEAL BALLOON DILATION Pre-op diagnosis: Dysphagia, Schatzki's ring Post-op diagnosis: Dysphagia, Schatzki's ring, hiatal hernia, gastric polyps, duodenal nodule Endoscopist:? Cristopher Grimm MD Anesthesia:?MAC Consent: Indications for the procedure and potential complications of bleeding, perforation, reaction to medications and missed diagnosis were discussed with the patient and informed consent was obtained. Instrument: Olympus GIF H 190 mid size upper endoscope Monitoring: Vital signs and clinical assessment, continuous EKG monitoring, Pulse oximetry, Carbon Dioxide monitoring and blood pressure monitoring were done throughout the procedure. Procedure: The patient was placed in the left lateral decubitis position and pre-procedure medications were administered and a bite block was placed. The endoscope was inserted into the mouth and advanced under direct vision to the third part of duodenum. A careful inspection was made as the upper endoscope was withdrawn including a retroflexed examination of the proximal stomach; Findings and interventions are described below. Findings: Larynx: Normal Esophagus: GE junction at 36 cms, hiatal hernia from 36-40 cms. No esophagitis or Sumner's. A partially obstructing Schatzki's ring at the GE junction. Biopsies obtained from proximal esophagus for EoE during previous EGD were normal. Esophageal balloon dilation was performed with a 20 mm CRE balloon for 60 seconds. Some heme noted at the GE junction after the procedure indicating rupture of the Schatzki's ring. Stomach: Multiple 5 mm to 1.5 cm benign-appearing gastric polyps - biopsied during past EGD. Grade 3 flap valve on retroflexed examination of the cardia. Duodenum: Normal bulb. A 2.5 cms benign appearing nodule (with normal overlying mucosa) in the proximal 2nd part of the duodenum - benign on biopsies obtained during past EGD. Intervention: Esophageal balloon dilation as noted above Impression and Post Procedure Diagnosis: Endoscopy Findings: ESOPHAGUS: A partially obstructing Schatzki's ring at the GE junction. Esophageal balloon dilation was performed with a 20 mm CRE balloon for 60 seconds. STOMACH: Multiple gastric polyps. DUODENUM: A stable 2.5 cms benign appearing nodule (with normal overlying mucosa) in the proximal 2nd part of the duodenum - easily compressed with biopsy forcep - ? submucosal lipoma. Plan: Patient has an appointment on 1/8/26 in the GI Clinic with Cristopher Grimm M.D. Repeat EGD with dilation prn for recurrent dysphagia Above findings were reviewed with the patient.
[2025-03-14 11:49] VITALS: BP 156/79; PULSE 86; RESP 25; TEMP 36.6; O2SAT 98
[2025-03-14 12:03] VITALS: BP 160/83; PULSE 81; RESP 14; TEMP 36.6; O2SAT 96
== END 2025-03-14 12:17 | disposition home or self-care (01) ==
PROVIDERS: PCP Physician Assistant Medical; Visit Provider Internal Medicine Gastroenterology
DX: R13.10 Dysphagia, unspecified (principal); I85.00 Esophageal varices without bleeding; K21.9 Gastro-esophageal reflux disease without esophagitis; K22.2 Esophageal obstruction; R13.12 Dysphagia, oropharyngeal phase; K31.7 Polyp of stomach and duodenum; K44.9 Diaphragmatic hernia without obstruction or gangrene
CPT/HCPCS: 43249; C1726; J2003; J2250; J2704

== ENCOUNTER → 2025-03-14 09:22 | Outpatient (BNV) | payer MEDICARE, BC, SELFPAY | PROVIDERS: PCP Physician Assistant Medical; Visit Provider Internal Medicine Gastroenterology | DX: R13.10 Dysphagia, unspecified (principal); K22.2 Esophageal obstruction; K31.7 Polyp of stomach and duodenum | CPT/HCPCS: 43239; 43249 ==